=== PATIENT | female | born 1935 | race Caucasian/White ===

== ENCOUNTER → 2017-12-21 08:53 | Outpatient (CLI) | payer MEDICARE, SELFPAY ==
[2017-12-21 10:32] LABS: AST(SGOT) 15 U/L (15-37); Alanine Aminotransfer ALT/SGPT 23 U/L (13-56); Albumin, Serum 2.9 g/dL (3.2-5.0); Alkaline Phosphatase 114 U/L (45-117); Anion Gap 7 (5-15); BUN 21 mg/dL (7-18); BUN/Creat Ratio 16.7 RATIO (10-20); Bilirubin, Direct 0.11 mg/dL (0.00-0.30); Calcium,Total 8.6 mg/dL (8.5-10.1); Chloride 104 mmol/L (98-107); Cholesterol 125 mg/dL (200); Creatinine, Serum 1.26 mg/dL (0.55-1.02); EST Glomerular Filtration Rate 43 mL/min (>60); Est Glom Filt Rate - Afr Amer 52 mL/min (>60); Globulin 4.7 g/dL (2.2-4.2); Glucose 251 mg/dL (74-106); High Density Lipoprotein 66 mg/dL; Microalbumin:Creatinine Ratio 64.3 mg/g CRE (<30 mg/g CRE); Potassium 4.5 mmol/L (3.5-5.1); Protein, Total 7.6 g/dL (6.4-8.2); Sodium Level 138 mmol/L (136-145); Triglycerides 93 mg/dL; Very Low Density Lipoprotein 19 mg/dL (5-40)
== END ==
PROVIDERS: Family Provider Family Medicine; PCP Family Medicine; Visit Provider Family Medicine
DX: E11.9 Type 2 diabetes mellitus without complications (principal)
CPT/HCPCS: 36415; 80048; 80061; 80076; 82043; 82570

== ENCOUNTER → 2018-03-01 08:15 | Outpatient (CLI) | payer MEDICARE, SELFPAY ==
[2018-03-01 08:44] LABS: Absolute Lymphocyte Count 1.75 X10^3/ul (0.83-4.51); Absolute Neutrophil Count 3.2 X10^3/uL (2.0-7.7); Basophil# 0.03 X10^3/uL; Basophil% 0.5 % (0-1); Eosinophil# 0.34 X10^3/uL; Eosinophils% 5.7 % (0-5); Hematocrit 32.3 % (37-47); Lymphocyte # 1.75 X10^3/ul (4.0); Lymphocyte % 29.5 % (19-41); Mean Corpuscular Hgb 25.8 pg (27.0-32.0); Mean Corpuscular Volume 83.5 fL (81-99); Mean Platelet Vol. 10.7 fl (6.2-12.0); Monocyte# 0.65 X10^3/uL; Monocyte% 10.9 % (0-10); Neutrophil # 3.16 X10^3/uL (2.7-7.7); Neutrophil % 53.2 % (47-70); Platelet Count 224 K/mm3 (150-450); RBC Distribution Width CV 14.5 % (11.6-14.6); RBC Distribution Width SD 43.6 fl (35.1-43.9); Red Blood Count 3.87 M/mm3 (4.2-5.4); White Blood Count 5.9 K/mm3 (4.4-11.0)
[2018-03-01 08:45] LABS: POSITIVE COUNT NO; POSITIVE DIFFERENTIAL NO; POSITIVE MORPHOLOGY NO
== END ==
PROVIDERS: Physician Assistant Medical; Family Provider Family Medicine; PCP Family Medicine; Referring Provider Internal Medicine Cardiovascular Disease; Visit Provider Internal Medicine Cardiovascular Disease
DX: I24.8 Other forms of acute ischemic heart disease (principal)
CPT/HCPCS: 36415; 85025

== ENCOUNTER → 2018-06-21 08:45 | Outpatient (CLI) | payer MEDICARE, SELFPAY ==
[2018-02-21 09:04] VITALS: BMI 29.0
[2018-06-21 10:57] LABS: ALB/GLOB Ratio 0.8 RATIO (0.9-2.4); AST(SGOT) 25 U/L (15-37); Alanine Aminotransfer ALT/SGPT 35 U/L (13-56); Albumin, Serum 3.2 g/dL (3.2-5.0); Alkaline Phosphatase 111 U/L (45-117); Anion Gap 10 (5-15); BUN 37 mg/dL (7-18); Calcium,Total 8.7 mg/dL (8.5-10.1); Chloride 105 mmol/L (98-107); Cholesterol 133 mg/dL (200); Creatinine, Serum 1.32 mg/dL (0.55-1.02); EST Glomerular Filtration Rate 41 mL/min (>60); Est Glom Filt Rate - Afr Amer 49 mL/min (>60); Globulin 4.1 g/dL (2.2-4.2); Glucose 101 mg/dL (74-106); High Density Lipoprotein 67 mg/dL; Potassium 4.7 mmol/L (3.5-5.1); Protein, Total 7.3 g/dL (6.4-8.2); Sodium Level 141 mmol/L (136-145); Triglycerides 103 mg/dL; Very Low Density Lipoprotein 21 mg/dL (5-40)
== END ==
PROVIDERS: Family Provider Family Medicine; PCP Family Medicine; Visit Provider Family Medicine
DX: E11.41 Type 2 diabetes mellitus with diabetic mononeuropathy (principal)
CPT/HCPCS: 36415; 80053; 80061

== ENCOUNTER → 2018-06-26 14:22 | Outpatient (CLI) | payer MEDICARE, SELFPAY ==
[2018-02-21 09:04] VITALS: BMI 29.0
--- NOTE | 2018-06-26 14:26 | RAD_ITS ---
STUDY: X-RAY - RIGHT SHOULDER REASON FOR EXAM: Female, 82 years old. Pain following recent fall. TECHNIQUE: 2 view(s) of the shoulder. COMPARISON: None. FINDINGS: Normal glenohumeral articulation. Normal acromioclavicular joint. Normal acromion. Normal humeral head and visualized proximal humerus. There is periarticular soft tissue calcification consistent with a calcific tendinitis. Normal visualized pulmonary apex. RAD/Shoulder min 2 Views IMPRESSION: Calcific tendinitis. Electronically Signed: Isaiah Field, at 15:02 EST , Service support ,
--- NOTE | 2018-06-26 14:26 | RAD_ITS ---
STUDY: X-RAY - RIGHT CLAVICLE REASON FOR EXAM: Female, 82 years old. Pain following a recent fall. TECHNIQUE: 2 view(s) of the clavicle. COMPARISON: None. FINDINGS: Normal clavicle. Normal acromioclavicular articulation. Normal visualized sternoclavicular articulation. Calcific tendinitis. Normal visualized pulmonary apex. RAD/Clavicle IMPRESSION: Calcific tendinitis. Electronically Signed: Isaiah Field, at 15:01 EST , Service support ,
== END ==
PROVIDERS: Family Provider Family Medicine; PCP Family Medicine; Referring Provider Family Medicine; Visit Provider Family Medicine
DX: M75.31 Calcific tendinitis of right shoulder (principal)
CPT/HCPCS: 73000; 73030

== ENCOUNTER → 2018-09-21 09:20 | Outpatient (CLI) | payer MEDICARE, SELFPAY ==
[2018-08-16 14:58] VITALS: BMI 27.3
[2018-09-21 13:19] LABS: ALB/GLOB Ratio 0.8 RATIO (0.9-2.4); AST(SGOT) 16 U/L (15-37); Alanine Aminotransfer ALT/SGPT 21 U/L (13-56); Albumin, Serum 3.1 g/dL (3.2-5.0); Alkaline Phosphatase 106 U/L (45-117); Anion Gap 8 (5-15); BUN 26 mg/dL (7-18); BUN/Creat Ratio 22.2 RATIO (10-20); Calcium,Total 8.9 mg/dL (8.5-10.1); Chloride 106 mmol/L (98-107); Creatinine, Serum 1.17 mg/dL (0.55-1.02); EST Glomerular Filtration Rate 47 mL/min (>60); Est Glom Filt Rate - Afr Amer 57 mL/min (>60); Glucose 156 mg/dL (74-106); Potassium 4.4 mmol/L (3.5-5.1); Protein, Total 7.1 g/dL (6.4-8.2); Sodium Level 141 mmol/L (136-145)
== END ==
PROVIDERS: Family Provider Family Medicine; PCP Family Medicine; Referring Provider Family Medicine; Visit Provider Family Medicine
DX: E11.49 Type 2 diabetes mellitus with other diabetic neurological complication (principal); E11.65 Type 2 diabetes mellitus with hyperglycemia
CPT/HCPCS: 36415; 80053

== ENCOUNTER → 2019-03-21 11:16 | Outpatient (CLI) | payer MEDICARE, SELFPAY ==
[2019-01-07 14:45] VITALS: BMI 26.6
[2019-03-21 13:03] LABS: ALB/GLOB Ratio 0.7 RATIO (0.9-2.4); AST(SGOT) 23 U/L (15-37); Alanine Aminotransfer ALT/SGPT 29 U/L (13-56); Albumin, Serum 3.1 g/dL (3.2-5.0); Alkaline Phosphatase 113 U/L (45-117); Anion Gap 8 (5-15); BUN 23 mg/dL (7-18); BUN/Creat Ratio 17.8 RATIO (10-20); Calcium,Total 8.9 mg/dL (8.5-10.1); Chloride 105 mmol/L (98-107); Creatinine, Serum 1.29 mg/dL (0.55-1.02); EST Glomerular Filtration Rate 42 mL/min (>60); Est Glom Filt Rate - Afr Amer 51 mL/min (>60); Globulin 4.7 g/dL (2.2-4.2); Glucose 221 mg/dL (74-106); Potassium 4.5 mmol/L (3.5-5.1); Protein, Total 7.8 g/dL (6.4-8.2); Sodium Level 139 mmol/L (136-145)
== END ==
PROVIDERS: Family Provider Family Medicine; PCP Family Medicine; Referring Provider Family Medicine; Visit Provider Family Medicine
DX: E11.49 Type 2 diabetes mellitus with other diabetic neurological complication (principal)
CPT/HCPCS: 36415; 80053

== ENCOUNTER 2019-08-20 16:19 | Emergency (ER) | payer MEDICARE, SELFPAY ==
[2019-01-07 14:45] VITALS: BMI 26.6
[2019-08-20] VITALS (14 sets, daily range): BP systolic 132–240; BP diastolic 71–140; PULSE 70–84; RESP 15–23; TEMP 36.2–36.9; O2SAT 93–100; BMI 29.2
--- NOTE | 2019-08-20 16:26 | CT_ITS ---
We are attempting to reach an attending provider to discuss findings. An addendum with communication details will be sent when the communication is complete. STUDY: CT BRAIN WITHOUT CONTRAST REASON FOR EXAM: Female, 83 years old. PT WAS PLAYING CASSIDY 1.5 HRS AGO- FORGOT HOW TO PLAY, GOT WORSE. HTN 193/125 RADIATION DOSAGE (If Supplied By Facility): CTDIvol = ( 44.99 ) mGy, DLP = ( 779.24 ) mGycm TECHNIQUE: Transaxial CT imaging of the brain was performed without administration of intravenous contrast material. Individualized dose optimization techniques were used for this CT. COMPARISON: March 23, 2017. FINDINGS: Normal soft tissue structures. Normal calvarium. Diffuse calcification of cavernous carotids and vertebral arteries Moderate atrophy and periventricular white matter ischemic changes.. Normal basal ganglia and thalami. Normal brainstem. Normal cerebellum. There is no intracranial hemorrhage. There are no findings of an acute ischemic infarction. Postsurgical changes of the orbits Normal visualized paranasal sinuses. No significant change since prior exam CT/Brain/Head without Contrast IMPRESSION: Moderate atrophy and white matter ischemic change. No evidence for acute bleed. If concern for acute infarct MRI recommended. Electronically Signed: Thomas Cunningham MD at 16:45 EDT , Service support ,
--- NOTE | 2019-08-20 16:26 | EKG12_ITS ---
Test Reason : R/O STROKE Blood Pressure : / mmHG Vent. Rate : 078 BPM Atrial Rate : 078 BPM P-R Int : 182 ms QRS Dur : 090 ms QT Int : 410 ms P-R-T Axes : 065 057 007 degrees QTc Int : 467 ms Normal sinus rhythm Nonspecific ST abnormality Abnormal ECG Confirmed by JESSICA LAMA, DANDY ([id number]), publishing editor FORREST SARMIENTO ([id number]) on 08/26/2019 10:49:39 AM Referred By: Keily Camarillo Confirmed By:SAROJ CAMARILLO MD
--- NOTE | 2019-08-20 16:27 | CM.ED ---
Social Work Responding to stoke alert. Provided support for patient spouse, Hernesto Jordan. Julian stating to be primary wound care center consultant for patient. Patient and Julian also have support from granddaughter, Yumiko that is currently outside ED department due to COVID-19 precautions. Julian wanting Yumiko to be updated as possible. Updated Yumiko on stroke alert for patient, Yumiko tearful but able to collect self. Julian also tearful, but also able to collect self. Will continue to follow for further support and active listening as needed. Adi Clements MSW, ELSA
[2019-08-20 16:47] LABS: Absolute Lymphocyte Count 2.15 X10^3/uL (0.83-4.51); Absolute Neutrophil Count 4.4 X10^3/uL (2.0-7.7); Basophil# 0.04 X10^3/uL; Basophil% 0.5 % (0-1); Eosinophil# 0.14 X10^3/uL; Eosinophils% 1.9 % (0-5); Hematocrit 35.8 % (37-47); Lymphocyte # 2.15 X10^3/ul (4.0); Lymphocyte % 28.4 % (19-41); Mean Corp Hgb Conc 30.7 g/dL (32-36); Mean Corpuscular Hgb 25.2 pg (27.0-32.0); Mean Corpuscular Volume 81.9 fL (81-99); Mean Platelet Vol. 10.7 fl (6.2-12.0); Monocyte% 10.6 % (0-10); NRBC Flagged by Analyzer 0 % (0-5); Neutrophil # 4.41 X10^3/uL (2.7-7.7); Neutrophil % 58.3 % (47-70); Platelet Count 264 K/mm3 (150-450); RBC Distribution Width CV 14.6 % (11.6-14.6); RBC Distribution Width SD 43.8 fl (35.1-43.9); Red Blood Count 4.37 M/mm3 (4.2-5.4); White Blood Count 7.6 K/mm3 (4.4-11.0)
--- NOTE | 2019-08-20 16:49 | CT_ITS ---
STUDY: CTA HEAD AND NECK WITH CONTRAST REASON FOR EXAM: Female, 83 years old. CVA, FORGOT SUDDENLY HOW TO PLAY CASSIDY RADIATION DOSAGE (If Supplied By Facility): CTDIvol = ( 20.07 ) mGy, DLP = ( 669.12 ) mGycm TECHNIQUE: CT angiography was performed with a multi-detector CT scanner. Data acquisition was obtained from the skull base through the vertex following intravenous administration of 100ML ISOVUE 370. MIP images were reconstructed from the axial data set. Post-processing of the angiographic images was performed, with multiplanar reformation and 3D reconstruction. Individualized dose optimization techniques were used for this CT. COMPARISON: No relevant priors. FINDINGS: Normal bilateral petrous carotid arteries. Diffuse calcific plaquing of the right cavernous carotid artery with a normal supraclinoid bifurcation. Diffuse calcific plaquing of the left cavernous carotid artery with a normal supraclinoid bifurcation. Normal right A1 segments of the anterior cerebral artery. Severely narrowed proximal left A1 segments of the anterior cerebral artery. Normal intact anterior communicating artery (ACOM). Normal bilateral A2 segments of the anterior cerebral arteries. Normal right M1 and M2 segments of the middle cerebral arteries, with a normal M1 bifurcation. Normal left M1 and M2 segments of the middle cerebral arteries, with a normal M1 bifurcation. Normal right posterior communicating artery (PCOM). Left posterior communicating artery not visualized consistent with normal variant. Normal bilateral vertebral arteries. Normal basilar artery with a normal basilar bifurcation. The visualized bilateral superior cerebellar (SCA) arteries are normal. Normal right posterior cerebral artery. Severely narrowed P2 segment of the left posterior cerebral There is no demonstrated aneurysm of the [place]. There is no demonstrated abnormality of the visualized brain. AORTIC ARCH: Normal visualized aortic arch. Normal origins of the brachiocephalic, left common carotid, and left subclavian arteries. RIGHT CAROTID ARTERIES: Normal right common carotid artery (CCA). High-grade stenosis of the right common carotid bulb. High-grade stenosis of the origin of the right internal carotid (ICA) artery without a hemodynamically significant stenosis. Normal visualized cervical portion of the right internal carotid artery. Normal origin of the right external carotid artery (ECA). LEFT CAROTID ARTERIES: Normal left common carotid artery (CCA). High-grade stenosis of the left common carotid bulb. High-grade stenosis of the origin of the left internal carotid (ICA) artery. Normal visualized cervical portion of the left internal carotid artery. Normal origin of the left external carotid artery (ECA). VERTEBRAL ARTERIES: Normal bilateral vertebral arteries. CT/CTA Head AND Neck W/ Contrast IMPRESSION: Advanced atherosclerotic disease with high-grade stenosis of the carotid bulb and origin of internal carotids bilaterally. There is also severe narrowing of the proximal A1 segment of the left anterior cerebral artery and severe narrowing of the P2 segment of left posterior cerebral artery Electronically Signed: Thomas Cunningham MD at 17:45 EDT , Service support ,
[2019-08-20 17:11] LABS: Anion Gap 5 (5-15); BUN 21 mg/dL (7-18); BUN/Creat Ratio 16.5 RATIO (10-20); Calcium,Total 9.4 mg/dL (8.5-10.1); Chloride 101 mmol/L (98-107); Creatinine, Serum 1.27 mg/dL (0.55-1.02); EST Glomerular Filtration Rate 43 mL/min (>60); Est Glom Filt Rate - Afr Amer 51 mL/min (>60); Estimated Creatinine Clearance 26.08 ml/min; Glucose 196 mg/dL (74-106); Potassium 4.7 mmol/L (3.5-5.1); Sodium Level 134 mmol/L (136-145)
[2019-08-20 17:26] LABS: Partial Thromboplast Time 28.8 Seconds (24.1-36.2); Prothrombin Time (Protime)PT. 12.7 SECONDS (11.7-14.9)
--- NOTE | 2019-08-20 17:49 | RAD_ITS ---
STUDY: X-RAY CHEST REASON FOR EXAM: Female, 83 years old. stroke protocol TECHNIQUE: AP portable COMPARISON: December 21, 2015 FINDINGS: Nonspecific elevation of right hemidiaphragm. Mild bilateral perihilar interstitial thickening There is no demonstrated pleural abnormality. Normal size heart. Normal mediastinum and quirino. Normal visualized pulmonary arteries. Diffusely calcified aortic arch and descending thoracic aorta. Dorsal spine and shoulders demonstrate degenerative change. Normal visualized ribs, clavicles, and shoulders. Right paratracheal convex soft tissue density without displacement of the trachea most likely vascular There is no demonstrated abnormality of the visualized soft tissue structures of the upper abdomen. No significant changes since prior exam RAD/Chest 1 View IMPRESSION: No acute cardiopulmonary pathology. Electronically Signed: Thomas Cunningham MD at 18:00 EDT , Service support ,
--- NOTE | 2019-08-20 17:52 | ED.RN ---
pt able to answer questions. smiling and told spouse i love you too pt getting name rt but unable to state last name or age or birthday. denies any pain at this time. kelly draining clear yellow. nih score still 9 though some fragments of speech appropriate now. unable to extinguish which side when tested extinction and that uses magnifying glass to read and does not see well at all. unable to see pic on nih scoring sheet. at bedside.
--- NOTE | 2019-08-20 17:59 | NURSING ---
CALLED [facility] FOR DR ABBOTT TO TALK TO NEUROLOGIST
--- NOTE | 2019-08-20 18:16 | ED.VISSUMM ---
- ER Visit Summary Date of Service: 08/20/19 Chief Complaint: Difficulty speaking confusion History of Present Illness: The patient is a 83 F who presents with the above symptoms. Her and her were playing a card game when she became acutely confused. She did not know what game they were playing. She forgot how to play. She did know how to eat a sandwich that he had given her. He feels that her speech is abnormal. They called EMS. Glucose was 211 in route. She is on no blood thinning medications. No history of stroke in the past. Physical Examination: Vital signs reviewed. HEENT exam unremarkable. Heart is regular rate and rhythm without murmurs. Lungs are clear to auscultation. Abdomen is soft and nontender. Extremities reveal no edema. Skin exam normal. Neurologic exam shows an NIH stroke scale of 6. She has expressive aphasia with some mild right-sided weakness. Test Results: CAT scan of the head reveals chronic changes with no bleed. EKG unremarkable. Labs show a hemoglobin of 11, sodium 134, creatinine 1.27. INR 1. CTA of the head and neck reveals a high-grade stenosis of the carotids bilaterally Emergency Department Course and Treatment: The patient was made a stroke team upon arrival. The neurologist recommended TPA and discussed with the . He consented to the TPA. After the CTA results were relayed to the [facility] neurologist, he recommended transfer. Treatment Plan: [] Disposition: Transfer Impression: Ischemic stroke This note was generated with [employer] dictation software. It may contain incorrect words, spelling, and punctuation that were not noted in review of the chart prior to signing ED Disposition - Plan for ED Patient: Referrals: Shun Michelle MD [Primary Care Provider] -
--- NOTE | 2019-08-20 18:17 | NURSING ---
CALLED [facility] FOR TRANSPORT
--- NOTE | 2019-08-20 18:40 | ED.RN ---
consent to transfer signed per pt's and labetolol given for bp >180
--- NOTE | 2019-08-20 21:35 | ED.RN ---
CHART OPENED TO ANSWER A QUESTION FOR [facility]
== END 2019-08-20 19:20 | disposition short-term general hospital (02) ==
PROVIDERS: Emergency Provider Emergency Medicine; PCP Family Medicine
DX: I63.9 Cerebral infarction, unspecified (principal); I10 Essential (primary) hypertension; E78.00 Pure hypercholesterolemia, unspecified; E11.9 Type 2 diabetes mellitus without complications
CPT/HCPCS: 51702; 70450; 70496; 70498; 71045; 80048; 84484; 85025; 85610; 85730; 93005; 96365; 96372; 96375; 99285; J2997; Q9967; A4216

== ENCOUNTER 2019-08-29 18:39 | Inpatient (IN) | payer MEDICARE, SELFPAY ==
[2019-08-20 16:25] VITALS: BMI 29.2
[2019-08-29 18:45] VITALS: BP 146/71; PULSE 73; RESP 20; TEMP 36.9; O2SAT 93; BMI 26.5
--- NOTE | 2019-08-29 20:37 | HP.PCM_ITS ---
Problem List (1) Debility Status: Acute (2) Acute confusion Status: Acute (3) Expressive aphasia Status: Acute (4) Stroke aborted by administration of thrombolytic agent Status: Acute (5) Acute kidney injury Status: Acute (6) Anemia Status: Acute (7) Diabetes mellitus Status: Chronic (8) Carotid stenosis Status: Chronic (9) Hyperlipidemia Status: Chronic Qualifiers: (10) Hypertension Status: Chronic History of Present Illness Date of Admission: 08/29/19 Chief Complaint: Here for rehabilitation, strengthening, prior to discharge home with . The patient is a 83 year old Female with below past medical history presented to [facility] Emergency Department 08/20/2019 with difficulty speaking, confusion. 08/20/2019 EKG normal sinus rhythm, nonspecific ST abnormality. 08/20/2019 CT brain moderate atrophy, white matter ischemic changes, NEGATIVE acute bleed. 08/20/2019 CTA head/neck showed bilateral severe carotid artery stenosis. Severe narrowing proximal A1 left anterior cerebral artery. Severe narrowing P2 left posterior cerebral artery. 08/20/2019 Chest X-ray negative. Playing cards with , acutely confused. Stroke Team activated. tPA given. Transfer to [facility]. 08/20/2019 Admit to [facility]. Post tPA protocol. SCD's DVT prophylaxis. 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 Consult neurosurgery bilateral carotid artery stenosis. 08/21/2019 Fever 100.7, check COVID. 08/22/2019 COVID negative. Increase IV fluids for Creatinine 2.3. Transfuse if hemoglobin less than 7, transfused 1 unit PRBC. MRI brain negative stroke, stroke aborted by tPA. 08/23/2019 Increase Coreg. 08/24/2019 CPAP, diuresis for desaturation. 08/25/2019 Asymptomatic run V Tach. Lasix 20MG IV given for pulmonary edema. 08/26/2019 Chest X-ray improved. Asymptomatic internal carotid artery disease. 08/29/2019 Admit to TCU with debility, here for rehabilitation, strengthening, prior to discharge home with . Past Medical History Past Medical History (Chronic Problems): Chronic Problems (Last Reviewed 01/04/19 @ 13:58 by Kellie Fuentes) Diabetes mellitus (Chronic) Carotid stenosis (Chronic) Demand ischemia of myocardium (Chronic ~12/2015) Hyperlipidemia (Chronic ~12/2015) Non-ST elevation NM (NSTEMI) (Chronic) Hypertension (Chronic) Type II diabetes mellitus (Chronic) Medical History: Medical History (Last Reviewed 01/04/19 @ 13:58 by Kellie Fuentes) Demand ischemia of myocardium (Chronic) Onset Date: ~12/2015 I24.8 Hyperlipidemia (Chronic) Onset Date: ~12/2015 E78.5 Non-ST elevation NM (NSTEMI) (Chronic) I21.4 Hypertension (Chronic) I10 Type II diabetes mellitus (Chronic) E11.9 Acute kidney injury Onset Date: ~11/2015 N17.9 Allergies No Known Allergies Allergy (Verified 01/07/19 14:50) Home Medications: Ambulatory Orders Medication Instructions Recorded Citalopram [Celexa] 40 mg PO DAILY 12/21/15 Amlodipine [Norvasc] 10 mg PO DAILY 08/20/19 Atorvastatin Calcium [Lipitor] 40 mg PO QHS 08/20/19 Citalopram [Celexa] 20 mg PO DAILY 08/20/19 Donepezil HCl [Aricept] 10 mg PO QHS 08/20/19 Glimepiride [Amaryl] 4 mg PO DAILY 08/20/19 Pantoprazole Sodium [Protonix] 40 mg PO DAILY 08/20/19 ALPRAZolam [Xanax] 0.5 mg PO QHS PRN PRN 08/29/19 Aspirin [Aspirin EC] 81 mg PO DAILY 08/29/19 Carvedilol [Coreg] 12.5 mg PO BID 08/29/19 Insulin Glargine [Lantus (BKC)] 10 units SUBCUT DINNER 08/29/19 Insulin Lispro [Humalog KwikPen] 1 - 5 unit SQ 4X/DAY 08/29/19 Surgical History: noncontributory Psychiatric History: 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 psych hx 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 MANAGER 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: 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 RIG MANAGER history Lives: Spouse/ Significant Other Smoking Status: Never smoker Tobacco Use: Non-smoker Alcohol: None Drugs: None - *Family History Maternal Family History: Family History (Last Reviewed 01/04/19 @ 13:58 by Kellie Fuentes) Mother Diabetes History Items: Diabetes Paternal Family History: Family History (Last Reviewed 01/04/19 @ 13:58 by Kellie Fuentes) Mother Diabetes History Items: 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 history Review of Systems Constitutional: Denies: Chills, Fever, Weight Change HEENT: Denies: Head Aches, Sinus Congestion, Sinus Drainage Cardiovascular: Denies: Chest Pain, Palpitations Respiratory: Denies: Cough, Shortness of breath at rest, Sputum production Gastrointestinal: Denies: Abdominal Pain, Nausea, Vomiting Genitourinary: Denies: Dysuria Musculoskeletal: Reports: - - Hip pain.. Denies: Joint Pain, Joint Tenderness Skin: Denies: Rash, Wounds Neurological: Denies: Numbness, Tingling, Focal weakness Psychiatric: Denies: Anxiety, Depression, Homicidal Ideations, Suicidal Ideations Hematologic/ Lymphatic: Denies: Easy Bruising, Easy Bleeding VTE Information - Inpt Only VTE Present on Admission: No VTE Mechan Device Prophylaxis: Knee High FIGUEROA Hose VTE Pharm Prophylaxis ordered?: No Reason prophylaxis not ordered:: Medical Contraindication Patient Problems: Active and Suspected Problems (Last Reviewed 01/04/19 @ 13:58 by Kellie Fuentes) Debility (Acute) Acute confusion (Acute) Expressive aphasia (Acute) Stroke aborted by administration of thrombolytic agent (Acute) Acute kidney injury (Acute) Anemia (Acute) - Physical Exam Vitals/I&O's: Body Mass Index (BMI) 29.2 Finger Stick Blood Glucose 211 General: Alert, Oriented x3, Cooperative HEENT: Atraumatic, PERRLA, EOMI, Normocephalic Neck: Supple, No JVD, Negative Carotid Bruits Lungs: Clear to auscultation, Normal air movement Cardiovascular: Regular rate, No murmurs Abdomen: Bowel Sounds Present, Soft, Non Tender Extremities: No edema, Capillary Refill Less than 3 Seconds Skin: No rashes, No breakdown Musculoskeletal: No Tenderness to Palpation of Joints or Extremities Neurological: Cranial nerves II-XII grossly intact Psych/Mental Status: Normal Affect, Appropriate Current Medications Alprazolam (Xanax) 0.5 mg PO QHS PRN PRN PRN Reason: ANXIETY Amlodipine Besylate (Norvasc) 10 mg PO DAILY [facility] Atorvastatin Calcium (Lipitor) 40 mg PO QHS [facility] Carvedilol (Coreg) 12.5 mg PO BID [facility] Citalopram Hydrobromide (Celexa) 20 mg PO DAILY [facility] Donepezil HCl (Aricept) 10 mg PO QHS [facility] Glimepir[facility]Amaryl) [facility] Insulin Glargine (Lantus (Bkc)) 10 units SC DINNER [place] Insulin Human Lispro (Humalog Kwikpen (Bk)) 0 unit SC ACHS [facility]; Protocol Pantoprazole Sodium (Protonix) 40 mg PO DAILY [facility] Tuberculin PPD (Tubersol, Aplisol, Ppd) 5 tu ID X1 ONE Stop: 08/30/19 10:01 Tuberculin PPD (Tubersol, Aplisol, Ppd) 5 tu ID X1 ONE Stop: 09/06/19 10:01 Assessment/Plan All Active Problems (Last Reviewed 01/04/19 @ 13:58 by Kellie Fuentes) Debility (Acute) Acute confusion (Acute) Expressive aphasia (Acute) Stroke aborted by administration of thrombolytic agent (Acute) Acute kidney injury (Acute) Anemia (Acute) Acute renal failure (ARF) (Resolved) Hyperkalemia (Resolved) Hypoglycemia (Resolved) Metabolic acidosis (Resolved) 83 year old female with below past medical history hospitalized for aborted stroke after tPA administration, complicated by acute kidney injury, anemia, ventricular tachycardia, pulmonary edema, admitted to TCU with debility, here for rehabilitation, strengthening, prior to discharge home with . * Debility - PT/OT. * Confusion - ST. * Pain - Tylenol 1000MG Q8H scheduled. * Bowel - Miralax 17GM daily, Senna/colace 1 tablet BID, Dulcolax 10MG daily PRN. * Adult immunization - Administer Prevnar 13, Pneumovax 23, Fluzone as appropriate. * DVT prophylaxis - Hold, recent tPA administration. * Anxiety - Xanax 0.5MG QHS PRN. * Hypertension - Coreg 12.5MG BID, Amlodipine 10MG daily. * Aborted stroke - Aspirin 81MG daily. * Hyperlipidemia - Atorvastatin 40MG QHS. * Depression - Citalopram 20MG daily. * Vascular dementia - Donepezil 10MG QHS. * Diabetes Mellitus II - Glimepiride 4MG, Lantus 10 units dinner. * GERD - Pantoprazole 40MG daily. * Iron deficiency anemia - Ferrex 150MG daily.
[2019-08-29] MEDS: ALPRAZolam 0.5 MG Tablet PO (21:18)
[2019-08-29] MEDS: Donepezil HCl 10 MG Tablet PO (21:18)
[2019-08-29] MEDS: Atorvastatin Calcium 40 MG Tablet PO (21:18)
[2019-08-29 21:35] LABS: Bedside Glucose 80 mg/dL (70-110)
[2019-08-30] MEDS: Senna/Docusate Sodium 1 Tablet PO ×2 (05:58→17:06)
[2019-08-30] MEDS: Carvedilol 12.5 MG Tablet PO ×2 (05:58→17:07)
[2019-08-30] MEDS: Citalopram 20 MG Tablet PO (05:58)
[2019-08-30] MEDS: Pantoprazole Sodium 40 MG Tablet PO (05:58)
[2019-08-30] MEDS: amLODIPine 10 MG Tablet PO (05:58)
[2019-08-30] MEDS: Polyethylene Glycol 3350 17 GM PACKET PO (05:59)
[2019-08-30] MEDS: Menthol/Lanolin/Calamine/Znox 113 GM Tube 1 APPLIC TOPICAL ×2 (06:00→17:11)
[2019-08-30 06:02] LABS: Absolute Neutrophil Count 3.4 X10^3/uL (2.0-7.7); Basophil# 0.03 X10^3/uL; Basophil% 0.4 % (0-1); Eosinophil# 0.56 X10^3/uL; Eosinophils% 8.4 % (0-5); Hematocrit 27.2 % (37-47); Hemoglobin 8.3 g/dL (12.0-15.0); Lymphocyte % 25.5 % (19-41); Mean Corp Hgb Conc 30.5 g/dL (32-36); Mean Corpuscular Hgb 27.3 pg (27.0-32.0); Mean Corpuscular Volume 89.5 fL (81-99); Mean Platelet Vol. 10.5 fl (6.2-12.0); Monocyte# 0.98 X10^3/uL; Monocyte% 14.7 % (0-10); NRBC Flagged by Analyzer 0 % (0-5); Neutrophil # 3.37 X10^3/uL (2.7-7.7); Neutrophil % 50.6 % (47-70); Platelet Count 303 K/mm3 (150-450); RBC Distribution Width CV 17.2 % (11.6-14.6); RBC Distribution Width SD 53.5 fl (35.1-43.9); Red Blood Count 3.04 M/mm3 (4.2-5.4); White Blood Count 6.7 K/mm3 (4.4-11.0)
[2019-08-30] MEDS: Glucerna Shake 120 ML LIQUID PO ×4 (06:16→22:25)
[2019-08-30 07:02] LABS: Anion Gap 7 (5-15); BUN 37 mg/dL (7-18); BUN/Creat Ratio 26.4 RATIO (10-20); Calcium,Total 8.8 mg/dL (8.5-10.1); Chloride 108 mmol/L (98-107); EST Glomerular Filtration Rate 38 mL/min (>60); Est Glom Filt Rate - Afr Amer 46 mL/min (>60); Estimated Creatinine Clearance 23.66 ml/min; Glucose 96 mg/dL (74-106); Potassium 4.4 mmol/L (3.5-5.1); Sodium Level 142 mmol/L (136-145)
[2019-08-30] MEDS: Glimepiride 4 MG Tablet PO (08:34)
[2019-08-30] MEDS: Aspirin E.C. 81 MG Tablet PO (08:34)
[2019-08-30 10:00] VITALS: PULSE 62; RESP 16; O2SAT 96
[2019-08-30] MEDS: ALPRAZolam 0.5 MG Tablet PO (10:40)
[2019-08-30] MEDS: Tuberculin,Purif.prot.deriv. 50 TU/ML Vial 5 ML ID (10:43)
[2019-08-30 11:21] LABS: Bedside Glucose 222 mg/dL (70-110)
--- NOTE | 2019-08-30 13:49 | CASEMGMT ---
Social Work Discussed code status with pt. Pt confirmed full code. MOSLT form completed and put in chart. Pascale Lee, MERCHANDISING EXECUTION ASSOCIATE BOX FEEDER
[2019-08-30 14:42] VITALS: BP 148/64; PULSE 75; RESP 18; TEMP 36.6; O2SAT 97
[2019-08-30 16:25] LABS: Bedside Glucose 194 mg/dL (70-110)
[2019-08-30] MEDS: Acetaminophen 500 MG Tablet 1000 MG PO ×2 (17:07→22:25)
[2019-08-30 21:36] LABS: Bedside Glucose 202 mg/dL (70-110)
[2019-08-30] MEDS: Atorvastatin Calcium 40 MG Tablet PO (22:26)
[2019-08-30] MEDS: Doxepin Hydrochloride 10 MG Capsule PO (22:27)
[2019-08-30] MEDS: Donepezil HCl 10 MG Tablet PO (22:27)
[2019-08-30] MEDS: Mirtazapine 15 MG Tablet 7.5 MG PO (22:30)
[2019-08-31] MEDS: Polyethylene Glycol 3350 17 GM PACKET PO (04:41)
[2019-08-31] MEDS: Acetaminophen 500 MG Tablet 1000 MG PO ×3 (04:42→21:16)
[2019-08-31] MEDS: amLODIPine 10 MG Tablet PO (04:42)
[2019-08-31] MEDS: Senna/Docusate Sodium 1 Tablet PO ×2 (04:42→18:12)
[2019-08-31] MEDS: Citalopram 20 MG Tablet PO (04:42)
[2019-08-31] MEDS: Glucerna Shake 120 ML LIQUID PO ×4 (04:42→21:15)
[2019-08-31] MEDS: Pantoprazole Sodium 40 MG Tablet PO (04:42)
[2019-08-31] MEDS: Carvedilol 12.5 MG Tablet PO ×2 (04:42→18:12)
[2019-08-31] MEDS: Menthol/Lanolin/Calamine/Znox 113 GM Tube 1 APPLIC TOPICAL ×2 (04:46→18:13)
[2019-08-31 06:25] LABS: Bedside Glucose 212 mg/dL (70-110)
[2019-08-31] MEDS: Iron Polysaccharide Complex 150 MG CAPSULE PO (08:59)
[2019-08-31] MEDS: Glimepiride 4 MG Tablet PO (08:59)
[2019-08-31] MEDS: Aspirin E.C. 81 MG Tablet PO (08:59)
[2019-08-31 11:26] LABS: Bedside Glucose 193 mg/dL (70-110)
[2019-08-31 16:00] VITALS: BP 155/50; PULSE 63; RESP 14; TEMP 36.2; O2SAT 96
[2019-08-31 16:32] LABS: Bedside Glucose 169 mg/dL (70-110)
[2019-08-31 21:16] LABS: Bedside Glucose 213 mg/dL (70-110)
[2019-08-31] MEDS: Atorvastatin Calcium 40 MG Tablet PO (21:17)
[2019-08-31] MEDS: Donepezil HCl 10 MG Tablet PO (21:17)
[2019-08-31] MEDS: Doxepin Hydrochloride 10 MG Capsule PO (21:17)
[2019-08-31] MEDS: Mirtazapine 15 MG Tablet 7.5 MG PO (21:20)
[2019-08-31] MEDS: ALPRAZolam 0.5 MG Tablet PO (23:50)
[2019-09-01] MEDS: Glucerna Shake 120 ML LIQUID PO ×4 (04:25→21:39)
[2019-09-01] MEDS: Polyethylene Glycol 3350 17 GM PACKET PO (04:25)
[2019-09-01] MEDS: Carvedilol 12.5 MG Tablet PO ×2 (04:26→18:18)
[2019-09-01] MEDS: Acetaminophen 500 MG Tablet 1000 MG PO ×3 (04:26→21:39)
[2019-09-01] MEDS: Pantoprazole Sodium 40 MG Tablet PO (04:26)
[2019-09-01] MEDS: amLODIPine 10 MG Tablet PO (04:26)
[2019-09-01] MEDS: Citalopram 20 MG Tablet PO (04:27)
[2019-09-01] MEDS: Senna/Docusate Sodium 1 Tablet PO ×2 (04:27→18:20)
[2019-09-01] MEDS: Menthol/Lanolin/Calamine/Znox 113 GM Tube 1 APPLIC TOPICAL ×2 (04:30→18:19)
[2019-09-01 06:30] LABS: Bedside Glucose 88 mg/dL (70-110)
[2019-09-01] MEDS: Aspirin E.C. 81 MG Tablet PO (08:29)
[2019-09-01] MEDS: Glimepiride 4 MG Tablet PO (08:30)
[2019-09-01] MEDS: Iron Polysaccharide Complex 150 MG CAPSULE PO (08:30)
[2019-09-01 11:15] LABS: Bedside Glucose 130 mg/dL (70-110)
[2019-09-01 15:13] VITALS: BP 157/55; PULSE 61; RESP 16; TEMP 36.6; O2SAT 97
[2019-09-01 16:50] LABS: Bedside Glucose 98 mg/dL (70-110)
--- NOTE | 2019-09-01 17:10 | NURSING ---
Pt requesting nasal spray. Dr. Cedillo updated and N.O. received
[2019-09-01] MEDS: ALPRAZolam 0.5 MG Tablet PO (21:39)
[2019-09-01] MEDS: Atorvastatin Calcium 40 MG Tablet PO (21:40)
[2019-09-01] MEDS: Donepezil HCl 10 MG Tablet PO (21:40)
[2019-09-01] MEDS: Doxepin Hydrochloride 10 MG Capsule PO (21:40)
[2019-09-01 21:41] LABS: Bedside Glucose 148 mg/dL (70-110)
[2019-09-01] MEDS: Mirtazapine 15 MG Tablet 7.5 MG PO (21:42)
[2019-09-02] MEDS: Glucerna Shake 120 ML LIQUID PO ×4 (06:04→21:40)
[2019-09-02] MEDS: Citalopram 20 MG Tablet PO (06:05)
[2019-09-02] MEDS: Acetaminophen 500 MG Tablet 1000 MG PO ×3 (06:05→21:40)
[2019-09-02] MEDS: Pantoprazole Sodium 40 MG Tablet PO (06:06)
[2019-09-02] MEDS: Carvedilol 12.5 MG Tablet PO ×2 (06:06→18:48)
[2019-09-02] MEDS: amLODIPine 10 MG Tablet PO (06:06)
[2019-09-02] MEDS: Menthol/Lanolin/Calamine/Znox 113 GM Tube 1 APPLIC TOPICAL ×2 (06:07→18:47)
[2019-09-02 06:26] LABS: Bedside Glucose 52 mg/dL (70-110)
[2019-09-02 06:50] LABS: Bedside Glucose 74 mg/dL (70-110)
[2019-09-02] MEDS: Glimepiride 4 MG Tablet PO (09:40)
[2019-09-02] MEDS: Iron Polysaccharide Complex 150 MG CAPSULE PO (09:41)
[2019-09-02] MEDS: Aspirin E.C. 81 MG Tablet PO (09:46)
[2019-09-02 11:06] LABS: Bedside Glucose 164 mg/dL (70-110)
[2019-09-02 16:00] VITALS: BP 123/73; PULSE 62; RESP 16; TEMP 36.4; O2SAT 96
[2019-09-02 16:46] LABS: Bedside Glucose 179 mg/dL (70-110)
[2019-09-02] MEDS: Senna/Docusate Sodium 1 Tablet PO (18:48)
[2019-09-02] MEDS: Doxepin Hydrochloride 10 MG Capsule PO (21:40)
[2019-09-02] MEDS: Donepezil HCl 10 MG Tablet PO (21:40)
[2019-09-02] MEDS: Mirtazapine 15 MG Tablet 7.5 MG PO (21:40)
[2019-09-02] MEDS: Atorvastatin Calcium 40 MG Tablet PO (21:40)
[2019-09-02 22:21] LABS: Bedside Glucose 218 mg/dL (70-110)
[2019-09-03] MEDS: Glucerna Shake 120 ML LIQUID PO ×4 (06:01→21:20)
[2019-09-03] MEDS: Citalopram 20 MG Tablet PO (06:02)
[2019-09-03] MEDS: amLODIPine 10 MG Tablet PO (06:02)
[2019-09-03] MEDS: Senna/Docusate Sodium 1 Tablet PO (06:02)
[2019-09-03] MEDS: Acetaminophen 500 MG Tablet 1000 MG PO ×3 (06:02→21:20)
[2019-09-03] MEDS: Pantoprazole Sodium 40 MG Tablet PO (06:02)
[2019-09-03] MEDS: Carvedilol 12.5 MG Tablet PO ×2 (06:02→16:55)
[2019-09-03] MEDS: Menthol/Lanolin/Calamine/Znox 113 GM Tube 1 APPLIC TOPICAL ×2 (06:04→16:57)
[2019-09-03 06:15] LABS: Bedside Glucose 148 mg/dL (70-110)
[2019-09-03] MEDS: Aspirin E.C. 81 MG Tablet PO (08:17)
[2019-09-03] MEDS: Iron Polysaccharide Complex 150 MG CAPSULE PO (08:18)
[2019-09-03] MEDS: Glimepiride 4 MG Tablet PO (08:19)
[2019-09-03 08:23] VITALS: RESP 18
[2019-09-03 11:11] LABS: Bedside Glucose 184 mg/dL (70-110)
[2019-09-03 14:19] VITALS: BP 116/47; PULSE 61; RESP 16; TEMP 36.1; O2SAT 94
--- NOTE | 2019-09-03 14:28 | CASEMGMT ---
Social Work Provided card from community member to pt. Pt appreciated the words of encouragement. Discussed with pt her goals as pt expressed during a therapy sessions she was tired and done. Pt feels therapy is helping a little bit and she wants to be able to walk with her walker to return home with her . Inquired if pt was tired and was done fighting - pt explained no, she wanted to keep fighting so she could go home. Inquired what would be the alternative plan if she couldn't go home - he would like to stay in TCU. Inquired about other SNFs if needed. Pt said she trusted her to make those decisions for her. Will continue to follow as pt's care plan meeting in the following day. BARTOLO Marshall
[2019-09-03 17:06] LABS: Bedside Glucose 190 mg/dL (70-110)
[2019-09-03] MEDS: Mirtazapine 15 MG Tablet 7.5 MG PO (21:20)
[2019-09-03] MEDS: Atorvastatin Calcium 40 MG Tablet PO (21:20)
[2019-09-03] MEDS: Donepezil HCl 10 MG Tablet PO (21:20)
[2019-09-03] MEDS: Doxepin Hydrochloride 10 MG Capsule PO (21:20)
[2019-09-03 21:21] LABS: Bedside Glucose 203 mg/dL (70-110)
[2019-09-04] MEDS: Glucerna Shake 120 ML LIQUID PO ×4 (05:22→21:01)
[2019-09-04] MEDS: Citalopram 20 MG Tablet PO (05:22)
[2019-09-04] MEDS: amLODIPine 10 MG Tablet PO (05:22)
[2019-09-04] MEDS: Pantoprazole Sodium 40 MG Tablet PO (05:22)
[2019-09-04] MEDS: Polyethylene Glycol 3350 17 GM PACKET PO (05:22)
[2019-09-04] MEDS: Carvedilol 12.5 MG Tablet PO ×2 (05:22→17:14)
[2019-09-04] MEDS: Acetaminophen 500 MG Tablet 1000 MG PO ×3 (05:22→21:01)
[2019-09-04] MEDS: Senna/Docusate Sodium 1 Tablet PO (05:22)
[2019-09-04] MEDS: Menthol/Lanolin/Calamine/Znox 113 GM Tube 1 APPLIC TOPICAL ×2 (05:25→17:13)
[2019-09-04 06:16] LABS: Bedside Glucose 162 mg/dL (70-110)
[2019-09-04] MEDS: Iron Polysaccharide Complex 150 MG CAPSULE PO (08:21)
[2019-09-04] MEDS: Glimepiride 4 MG Tablet PO (08:21)
[2019-09-04] MEDS: Aspirin E.C. 81 MG Tablet PO (08:21)
[2019-09-04 10:00] VITALS: PULSE 64; RESP 16
--- NOTE | 2019-09-04 10:58 | NURSING ---
Pt refuses thigh highs, agreed to wear candace wraps.
[2019-09-04 11:00] LABS: Bedside Glucose 252 mg/dL (70-110)
--- NOTE | 2019-09-04 11:29 | CASEMGMT ---
Social Work IDT met with patient and via conference call for care plan meeting. Discussed patient's progress in therapy. Pt is CGA for transfers, ambulating 20 ft with FWW at CGA, not tested bed mobility, SBA standing at sink SBA, max for bathing, min for UE dressing, max fr LE dressing, total for toileting tasks. Pt gets very fatigued and has very low activity tolerance. Pt states she has poor vision and glasses don't help so she keeps her eyes closed most of the time. ST working with pt on orientation, word generating and problem solving. Recommending 21/11 supervision for safety. assisted with medications and finances prior. Pt continues to receives 1:1 visits from activities. Pt on Cardiac carb controlled diet, accepting med pass, and on medication to stimulate appetite. Pt is out of room isolation 09/11. Explained insurance overage NRD 09/08 with anticipated DC date 09/13. Pt has 4 steps to enter fur 1st flr set up. Inquired how much could physically assist pt at home. states he is not that strong but both insistent they need to be home with one another and he would do anything he could to help her. Discussed SNF/AL options, [facility]. and pt both remain insistent on pt returning home because they cannot be without one another. stated he ordered a Lift[employer] for her at home, and rearranged the bedroom so a BSC could fit next to the pt's side of the bed. Will continue to follow and assist with DC planning. Pascale Lee, BARTOLO CHIEF ENVIRONMENTAL COMMITMENT OFFICER
--- NOTE | 2019-09-04 12:50 | PHA.CONS_ITS ---
<Valentin Patricia C - Last Filed: 09/04/19 12:50> Progress Note - Pharmacy Subjective: [] TCU Admission Objective: Allergies No Known Allergies Allergy (Verified 01/07/19 14:50) Current Medications Generic Name Dose Route Start Last Admin Trade Name Freq PRN Reason Stop Dose Admin Acetaminophen 1,000 mg 08/30/19 14:00 09/04/19 05:22 Tylenol PO 1,000 mg Q8 GEN[facility]EVA Administration Alprazolam 0.5 mg 08/29/19 19:02 09/01/19 21:39 Xanax PO 0.5 mg QHS PRN PRN Administration ANXIETY Amlodipine Besylate 10 mg 08/30/19 06:00 09/04/19 05:22 Norvasc PO 10 mg DAILY GENOVEVA Administration Aspirin 81 mg 08/30/19 08:00 09/04/19 08:21 Ecotrin PO 81 mg DAILYCM GENOVEVA Administration Atorvastatin Calcium 40 mg 08/29/19 22:00 09/03/19 21:20 Lipitor PO 40 mg QHS GENOVEVA Administration Bisacodyl 10 mg 08/29/19 20:55 Dulcolax PO DAILY PRN Constipation Calamine/Phenol 1 applic 08/30/19 06:00 09/04/19 05:25 Calmoseptine Ointment TOPICAL 1 applicatio BID GENOVEVA Administration Protocol Carvedilol 12.5 mg 08/30/19 06:00 09/04/19 05:22 Coreg PO 12.5 mg BID GENOVEVA Administration Citalopram Hydrobromide 20 mg 08/30/19 06:00 09/04/19 05:22 Celexa PO 20 mg DAILY GENOVEVA Administration Dextrose 0 gm 09/03/19 00:25 D50w Syringe IV X1 PRN Hypoglycemia Protocol Donepezil HCl 10 mg 08/29/19 22:00 09/03/19 21:20 Aricept PO 10 mg QHS GENOVEVA Administration Doxepin HCl 10 mg 08/30/19 22:00 09/03/19 21:20 Sinequan PO 10 mg QHS GENOVEVA Administration Glimepiride 4 mg 08/30/19 08:00 09/04/19 08:21 Amaryl PO 4 mg DAILYCM GENOVEVA Administration Glucagon 1 mg 09/03/19 00:25 IM .X1 PRN Hypoglycemia Mirtazapine 7.5 mg 08/30/19 22:00 09/03/19 21:20 Remeron PO 7.5 mg QHS GENOVEVA Administration Multi-Ingredient Cream 1 applic 08/30/19 06:00 09/04/19 05:25 Eucerin TOPICAL 1 applicatio 0600,2200 GENOVEVA Administration Protocol Nutritional Formula (Lactose Free) 120 ml 08/30/19 06:00 09/04/19 05:22 Glucerna Shake PO 120 ml 4X/DAY GENOVEVA Administration Pantoprazole Sodium 40 mg 08/30/19 06:00 09/04/19 05:22 Protonix PO 40 mg DAILY GENOVEVA Administration Polyethylene Glycol 17 gm 08/30/19 06:00 09/04/19 05:22 Miralax PO 17 gm DAILY GENOVEVA Administration Polysaccharide Iron Complex 150 mg 08/31/19 08:00 09/04/19 08:21 Ferrex 150 PO 150 mg DAILYCM GEN[facility]EVA Administration Senna/Docusate Sodium 1 tablet 08/30/19 06:00 09/04/19 05:22 Senokot-S, Zeny-Colace PO 1 tablet BID GENOVEVA Administration Sodium Chloride 2 spray 09/01/19 17:09 [place] Nasal [place] NASAL BID PRN PRN NASAL DRYNESS Tuberculin PPD 5 tu 09/06/19 10:00 Tubersol, Aplisol, Ppd ID 09/06/19 10:01 X1 ONE Problem List (Last Reviewed 01/04/19 @ 13:58 by Kellie Fuentes) Debility (Acute) Acute confusion (Acute) Expressive aphasia (Acute) Stroke aborted by administration of thrombolytic agent (Acute) Acute kidney injury (Acute) Anemia (Acute) Diabetes mellitus (Chronic) Carotid stenosis (Chronic) Vital Signs Temp Pulse Resp BP Pulse Ox 96.9 F L 64 16 116/47 L 94 09/03/19 14:19 09/04/19 10:00 09/04/19 10:00 09/03/19 14:19 09/03/19 14:19 Oxygen Delivery Method Room Air Weight: 65.771 kg Body Mass Index (BMI) 26.5 Finger Stick Blood Glucose 211 Sodium 142 mmol/L (136-145) 08/30/19 05:30 Potassium 4.4 mmol/L (3.5-5.1) 08/30/19 05:30 Chloride 108 mmol/L (98-107) H 08/30/19 05:30 Carbon Dioxide 27.0 mmol/L (21.0-32.0) 08/30/19 05:30 Anion Gap 7 (5-15) 08/30/19 05:30 BUN 37 mg/dL (7-18) H 08/30/19 05:30 Creatinine 1.40 mg/dL (0.55-1.02) H 08/30/19 05:30 Est GFR (MDRD) Af Amer 46 mL/min (>60) L 08/30/19 05:30 Est GFR (MDRD) Non-Af 38 mL/min (>60) L 08/30/19 05:30 BUN/Creatinine Ratio 26.4 RATIO (10-20) H 08/30/19 05:30 Glucose 96 mg/dL (74-106) 08/30/19 05:30 Diabetes Mellitus II - Glimepiride 4MG, Lantus 10 units dinner. Assessment/Plan: 1) Pain: Acetaminophen 1000mg po q8h. Please continue to monitor for signs/symptoms of increased/decreased pain. 2) Aborted Stroke: Aspirin 81mg po daily. Please continue to monitor for signs/ symptoms of bleeding. *3) GERD: Pantoprazole 40mg po daily. Pt's last Magnesium level was 1.6 on 12/2015. PPI's can interfere with the absorption of certain vitamins/minerals. Please consider a yearly Magnesium level while the pt is on a PPI. Thanks *4) Hyperlipidemia: Atorvastatin 40mg po at bedtime. Pt's LFTs are within normal limits. Please consider a yearly Lipid Panel while the pt is on a Statin. Thanks 5) Hypertension: Coreg 12.5mg po bid, Amlodipine 10mg po daily. Pt's average pulse is 65. Pt's average BP is 140.8/60. Please continue to monitor both pulse and bp. 6) Dementia: Donepezil 10mg po qhs. Donepezil is on the BEERS list. It has the potential to cause syncope by bradycardia. Due to the pt also being on Coreg, please continue to monitor for bradycardia. 7) Diabetes: Glimepiride 4mg po daily. Please continue to monitor Blood glucose levels and adjust medications accordingly. Psychotropic Medications: Insomnia: Doxepin 10mg po qhs. Medication due for a GDR 11/2019 Depression: Citalopram 20mg po daily. No GDR as of yet or BEERS recommendation due to recent stroke Anxiety: Alprazolam 0.5mg po qhs prn. Please continue to monitor prn usage, and for signs/symptoms of increased anxiety/restlessness Depression/appetite loss: Mirtazapine 7.5mg po qhs. See dieticians note about weight loss. Unnecessary Medications: none Bowel Regimen: Bisacodyl 10mg po daily prn for constipation, Miralax 17gm po daily, Senna/Docusate 1 tablet po bid. Please continue to monitor prn usage and for signs/symptoms of constipation/diarrhea. Date of Note:: 09/04/19 - Provider Comments Provider responsibility: Provider responsible to enter orders to implement recommendations <Shashank Cedillo Chi - Last Filed: 09/04/19 17:03> Progress Note - Pharmacy Subjective: [] Objective: Allergies No Known Allergies Allergy (Verified 01/07/19 14:50) Current Medications Generic Name Dose Route Start Last Admin Trade Name Freq PRN Reason Stop Dose Admin Acetaminophen 1,000 mg 08/30/19 14:00 09/04/19 13:23 Tylenol PO 1,000 mg Q8 GEN[facility]EVA Administration Alprazolam 0.5 mg 08/29/19 19:02 09/01/19 21:39 Xanax PO 0.5 mg QHS PRN PRN Administration ANXIETY Amlodipine Besylate 10 mg 08/30/19 06:00 09/04/19 05:22 Norvasc PO 10 mg DAILY GEN[facility]EVA Administration Aspirin 81 mg 08/30/19 08:00 09/04/19 08:21 Ecotrin PO 81 mg DAILYCM [facility]A Administration Atorvastatin Calcium 40 mg 08/29/19 22:00 09/03/19 21:20 Lipitor PO 40 mg QHS GENOVEVA Administration Bisacodyl 10 mg 08/29/19 20:55 Dulcolax PO DAILY PRN Constipation Calamine/Phenol 1 applic 08/30/19 06:00 09/04/19 05:25 Calmoseptine Ointment TOPICAL 1 applicatio BID GEN[facility]EVA Administration Protocol Carvedilol 12.5 mg 08/30/19 06:00 09/04/19 05:22 Coreg PO 12.5 mg BID GEN[facility]EVA Administration Citalopram Hydrobromide 20 mg 08/30/19 06:00 09/04/19 05:22 Celexa PO 20 mg DAILY GEN[facility]EVA Administration Dextrose 0 gm 09/03/19 00:25 D50w Syringe IV X1 PRN Hypoglycemia Protocol Donepezil HCl 10 mg 08/29/19 22:00 09/03/19 21:20 Aricept PO 10 mg QHS GEN[facility]EVA Administration Doxepin HCl 10 mg 08/30/19 22:00 09/03/19 21:20 Sinequan PO 10 mg QHS GENOVEVA Administration Glimepiride 4 mg 08/30/19 08:00 09/04/19 08:21 Amaryl PO 4 mg DAILYCM GENOVEVA Administration Glucagon 1 mg 09/03/19 00:25 IM .X1 PRN Hypoglycemia Mirtazapine 7.5 mg 08/30/19 22:00 09/03/19 21:20 Remeron PO 7.5 mg QHS GENOVEVA Administration Multi-Ingredient Cream 1 applic 08/30/19 06:00 09/04/19 05:25 Eucerin TOPICAL 1 applicatio 0600,2200 GEN[facility]EVA Administration Protocol Nutritional Formula (Lactose Free) 120 ml 08/30/19 06:00 09/04/19 13:22 Glucerna Shake PO 120 ml 4X/DAY [facility]A Administration Pantoprazole Sodium 40 mg 08/30/19 06:00 09/04/19 05:22 Protonix PO 40 mg DAILY GEN[facility]EVA Administration Polyethylene Glycol 17 gm 08/30/19 06:00 09/04/19 05:22 Miralax PO 17 gm DAILY GENOVEVA Administration Polysaccharide Iron Complex 150 mg 08/31/19 08:00 09/04/19 08:21 Ferrex 150 PO 150 mg DAILYCM GENOVEVA Administration Senna/Docusate Sodium 1 tablet 08/30/19 06:00 09/04/19 05:22 Senokot-S, Zeny-Colace PO 1 tablet BID GEN[facility]A Administration Sodium Chloride 2 spray 09/01/19 17:09 [place] Nasal [place] NASAL BID PRN PRN NASAL DRYNESS Tuberculin PPD 5 tu 09/06/19 10:00 Tubersol, Aplisol, Ppd ID 09/06/19 10:01 X1 ONE Problem List (Last Reviewed 01/04/19 @ 13:58 by Kellie Fuentes) Debility (Acute) Acute confusion (Acute) Expressive aphasia (Acute) Stroke aborted by administration of thrombolytic agent (Acute) Acute kidney injury (Acute) Anemia (Acute) Diabetes mellitus (Chronic) Carotid stenosis (Chronic) Vital Signs Temp Pulse Resp BP Pulse Ox 97.8 F 69 18 131/64 H 95 09/04/19 14:57 09/04/19 14:57 09/04/19 14:57 09/04/19 14:57 09/04/19 14:57 Oxygen Delivery Method Room Air Weight: 65.771 kg Body Mass Index (BMI) 26.5 Finger Stick Blood Glucose 211 Sodium 142 mmol/L (136-145) 08/30/19 05:30 Potassium 4.4 mmol/L (3.5-5.1) 08/30/19 05:30 Chloride 108 mmol/L (98-107) H 08/30/19 05:30 Carbon Dioxide 27.0 mmol/L (21.0-32.0) 08/30/19 05:30 Anion Gap 7 (5-15) 08/30/19 05:30 BUN 37 mg/dL (7-18) H 08/30/19 05:30 Creatinine 1.40 mg/dL (0.55-1.02) H 08/30/19 05:30 Est GFR (MDRD) Af Amer 46 mL/min (>60) L 08/30/19 05:30 Est GFR (MDRD) Non-Af 38 mL/min (>60) L 08/30/19 05:30 BUN/Creatinine Ratio 26.4 RATIO (10-20) H 08/30/19 05:30 Glucose 96 mg/dL (74-106) 08/30/19 05:30 Assessment/Plan: Psychotropic Medications: Unnecessary Medications: Bowel Regimen: - Provider Comments Provider responsibility: Provider responsible to enter orders to implement recommendations Provider Comments to Recommendations by Pharmacy: Agree
--- NOTE | 2019-09-04 14:52 | NURSING ---
Resident on the phone with her at this time.
[2019-09-04 14:57] VITALS: BP 131/64; PULSE 69; RESP 18; TEMP 36.6; O2SAT 95
[2019-09-04 16:11] LABS: Bedside Glucose 217 mg/dL (70-110)
[2019-09-04 16:55] LABS: Bedside Glucose 217 mg/dL (70-110)
[2019-09-04] MEDS: Donepezil HCl 10 MG Tablet PO (21:01)
[2019-09-04] MEDS: Mirtazapine 15 MG Tablet 7.5 MG PO (21:01)
[2019-09-04] MEDS: Atorvastatin Calcium 40 MG Tablet PO (21:01)
[2019-09-04] MEDS: Doxepin Hydrochloride 10 MG Capsule PO (21:02)
[2019-09-04 22:36] LABS: Bedside Glucose 225 mg/dL (70-110)
[2019-09-05] MEDS: Glucerna Shake 120 ML LIQUID PO ×3 (04:48→17:42)
[2019-09-05] MEDS: Citalopram 20 MG Tablet PO (04:49)
[2019-09-05] MEDS: Acetaminophen 500 MG Tablet 1000 MG PO ×3 (04:49→21:27)
[2019-09-05] MEDS: Carvedilol 12.5 MG Tablet PO ×2 (04:49→17:44)
[2019-09-05] MEDS: amLODIPine 10 MG Tablet PO (04:49)
[2019-09-05] MEDS: Pantoprazole Sodium 40 MG Tablet PO (04:49)
[2019-09-05] MEDS: Menthol/Lanolin/Calamine/Znox 113 GM Tube 1 APPLIC TOPICAL ×2 (04:50→21:28)
[2019-09-05 06:21] LABS: Bedside Glucose 200 mg/dL (70-110)
[2019-09-05] MEDS: Aspirin E.C. 81 MG Tablet PO (08:43)
[2019-09-05] MEDS: Iron Polysaccharide Complex 150 MG CAPSULE PO (08:44)
[2019-09-05] MEDS: Glimepiride 4 MG Tablet PO (08:44)
[2019-09-05 11:55] LABS: Bedside Glucose 199 mg/dL (70-110)
[2019-09-05 14:29] VITALS: BP 122/44; PULSE 60; RESP 14; TEMP 37.1; O2SAT 96
[2019-09-05 16:21] LABS: Bedside Glucose 191 mg/dL (70-110)
[2019-09-05] MEDS: Senna/Docusate Sodium 1 Tablet PO (17:42)
[2019-09-05 21:16] LABS: Bedside Glucose 217 mg/dL (70-110)
[2019-09-05] MEDS: Doxepin Hydrochloride 10 MG Capsule PO (21:27)
[2019-09-05] MEDS: Atorvastatin Calcium 40 MG Tablet PO (21:27)
[2019-09-05] MEDS: Mirtazapine 15 MG Tablet 7.5 MG PO (21:27)
[2019-09-05] MEDS: Donepezil HCl 10 MG Tablet PO (21:27)
[2019-09-06] MEDS: Glucerna Shake 120 ML LIQUID PO ×4 (04:58→21:10)
[2019-09-06] MEDS: Carvedilol 12.5 MG Tablet PO ×2 (04:58→17:02)
[2019-09-06] MEDS: amLODIPine 10 MG Tablet PO (04:58)
[2019-09-06] MEDS: Polyethylene Glycol 3350 17 GM PACKET PO (04:58)
[2019-09-06] MEDS: Menthol/Lanolin/Calamine/Znox 113 GM Tube 1 APPLIC TOPICAL ×2 (04:59→17:02)
[2019-09-06] MEDS: Pantoprazole Sodium 40 MG Tablet PO (04:59)
[2019-09-06] MEDS: Acetaminophen 500 MG Tablet 1000 MG PO ×3 (04:59→21:08)
[2019-09-06] MEDS: Senna/Docusate Sodium 1 Tablet PO ×2 (04:59→17:02)
[2019-09-06] MEDS: Citalopram 20 MG Tablet PO (04:59)
[2019-09-06 05:37] LABS: Absolute Lymphocyte Count 1.54 X10^3/uL (0.83-4.51); Absolute Neutrophil Count 6.3 X10^3/uL (2.0-7.7); Basophil# 0.04 X10^3/uL; Basophil% 0.4 % (0-1); Eosinophil# 0.16 X10^3/uL; Eosinophils% 1.8 % (0-5); Hematocrit 30.5 % (37-47); Hemoglobin 9.3 g/dL (12.0-15.0); Lymphocyte # 1.54 X10^3/ul (4.0); Lymphocyte % 17.1 % (19-41); Mean Corp Hgb Conc 30.5 g/dL (32-36); Mean Corpuscular Hgb 27.7 pg (27.0-32.0); Mean Corpuscular Volume 90.8 fL (81-99); Mean Platelet Vol. 10.8 fl (6.2-12.0); Monocyte# 0.87 X10^3/uL; Monocyte% 9.7 % (0-10); NRBC Flagged by Analyzer 0 % (0-5); Neutrophil # 6.31 X10^3/uL (2.7-7.7); Neutrophil % 70.3 % (47-70); Platelet Count 304 K/mm3 (150-450); RBC Distribution Width CV 18.3 % (11.6-14.6); Red Blood Count 3.36 M/mm3 (4.2-5.4)
[2019-09-06 06:03] LABS: Anion Gap 7 (5-15); BUN 43 mg/dL (7-18); BUN/Creat Ratio 28.1 RATIO (10-20); Calcium,Total 9.1 mg/dL (8.5-10.1); Chloride 108 mmol/L (98-107); Creatinine, Serum 1.53 mg/dL (0.55-1.02); EST Glomerular Filtration Rate 34 mL/min (>60); Est Glom Filt Rate - Afr Amer 42 mL/min (>60); Estimated Creatinine Clearance 21.65 ml/min; Glucose 132 mg/dL (74-106); Potassium 4.4 mmol/L (3.5-5.1); Sodium Level 140 mmol/L (136-145)
[2019-09-06 06:26] LABS: Bedside Glucose 152 mg/dL (70-110)
[2019-09-06] MEDS: Aspirin E.C. 81 MG Tablet PO (08:20)
[2019-09-06] MEDS: Glimepiride 4 MG Tablet PO (08:20)
[2019-09-06] MEDS: Iron Polysaccharide Complex 150 MG CAPSULE PO (08:20)
[2019-09-06] MEDS: Tuberculin,Purif.prot.deriv. 50 TU/ML Vial 5 ML ID (09:42)
[2019-09-06 11:11] LABS: Bedside Glucose 224 mg/dL (70-110)
[2019-09-06 14:43] VITALS: BP 117/72; PULSE 67; RESP 14; TEMP 36.6; O2SAT 94
[2019-09-06 16:50] LABS: Bedside Glucose 197 mg/dL (70-110)
[2019-09-06] MEDS: Doxepin Hydrochloride 10 MG Capsule PO (21:07)
[2019-09-06] MEDS: Donepezil HCl 10 MG Tablet PO (21:07)
[2019-09-06] MEDS: Mirtazapine 15 MG Tablet 7.5 MG PO (21:08)
[2019-09-06] MEDS: Atorvastatin Calcium 40 MG Tablet PO (21:08)
[2019-09-06 21:10] LABS: Bedside Glucose 141 mg/dL (70-110)
[2019-09-07] MEDS: ALPRAZolam 0.5 MG Tablet PO
[2019-09-07 04:45] VITALS: BP 136/52; PULSE 66
[2019-09-07] MEDS: Citalopram 20 MG Tablet PO (04:47)
[2019-09-07] MEDS: Carvedilol 12.5 MG Tablet PO ×2 (04:47→17:05)
[2019-09-07] MEDS: Polyethylene Glycol 3350 17 GM PACKET PO (04:47)
[2019-09-07] MEDS: Glucerna Shake 120 ML LIQUID PO ×4 (04:47→20:46)
[2019-09-07] MEDS: amLODIPine 10 MG Tablet PO (04:48)
[2019-09-07] MEDS: Acetaminophen 500 MG Tablet 1000 MG PO ×3 (04:48→20:51)
[2019-09-07] MEDS: Senna/Docusate Sodium 1 Tablet PO ×2 (04:48→17:05)
[2019-09-07] MEDS: Pantoprazole Sodium 40 MG Tablet PO (04:48)
[2019-09-07] MEDS: Menthol/Lanolin/Calamine/Znox 113 GM Tube 1 APPLIC TOPICAL ×2 (04:56→17:06)
[2019-09-07 06:26] LABS: Bedside Glucose 116 mg/dL (70-110)
[2019-09-07] MEDS: Iron Polysaccharide Complex 150 MG CAPSULE PO (08:43)
[2019-09-07] MEDS: Glimepiride 4 MG Tablet PO (08:43)
[2019-09-07] MEDS: Aspirin E.C. 81 MG Tablet PO (08:43)
[2019-09-07 11:21] LABS: Bedside Glucose 172 mg/dL (70-110)
[2019-09-07 14:32] VITALS: BP 126/50; PULSE 81; RESP 14; TEMP 36.1; O2SAT 96
[2019-09-07 16:30] LABS: Bedside Glucose 210 mg/dL (70-110)
[2019-09-07] MEDS: Sodium Chloride 0.65% 1 SPRAY SPRAY.BTL 2 SPRAY NASAL (20:46)
[2019-09-07] MEDS: Atorvastatin Calcium 40 MG Tablet PO (20:50)
[2019-09-07] MEDS: Donepezil HCl 10 MG Tablet PO (20:50)
[2019-09-07] MEDS: Doxepin Hydrochloride 10 MG Capsule PO (20:52)
[2019-09-07] MEDS: Mirtazapine 15 MG Tablet 7.5 MG PO (20:52)
[2019-09-07 21:11] LABS: Bedside Glucose 154 mg/dL (70-110)
[2019-09-08] MEDS: Glucerna Shake 120 ML LIQUID PO ×4 (05:00→20:35)
[2019-09-08] MEDS: Polyethylene Glycol 3350 17 GM PACKET PO (05:00)
[2019-09-08] MEDS: amLODIPine 10 MG Tablet PO (05:01)
[2019-09-08] MEDS: Carvedilol 12.5 MG Tablet PO ×2 (05:01→18:05)
[2019-09-08] MEDS: Citalopram 20 MG Tablet PO (05:01)
[2019-09-08] MEDS: Senna/Docusate Sodium 1 Tablet PO (05:01)
[2019-09-08] MEDS: Acetaminophen 500 MG Tablet 1000 MG PO ×3 (05:01→20:43)
[2019-09-08] MEDS: Pantoprazole Sodium 40 MG Tablet PO (05:01)
[2019-09-08 05:04] VITALS: BP 123/51; PULSE 61
[2019-09-08] MEDS: Menthol/Lanolin/Calamine/Znox 113 GM Tube 1 APPLIC TOPICAL ×2 (05:05→18:08)
[2019-09-08 06:21] LABS: Bedside Glucose 97 mg/dL (70-110)
[2019-09-08] MEDS: Iron Polysaccharide Complex 150 MG CAPSULE PO (08:40)
[2019-09-08] MEDS: Glimepiride 4 MG Tablet PO (08:40)
[2019-09-08] MEDS: Aspirin E.C. 81 MG Tablet PO (08:40)
[2019-09-08 10:00] VITALS: PULSE 48; RESP 16; O2SAT 96
[2019-09-08 11:15] LABS: Bedside Glucose 161 mg/dL (70-110)
[2019-09-08 14:53] VITALS: BP 121/54; PULSE 72; RESP 14; TEMP 36.1; O2SAT 96
[2019-09-08 16:30] LABS: Bedside Glucose 180 mg/dL (70-110)
[2019-09-08] MEDS: Atorvastatin Calcium 40 MG Tablet PO (20:36)
[2019-09-08] MEDS: Donepezil HCl 10 MG Tablet PO (20:36)
[2019-09-08] MEDS: Mirtazapine 15 MG Tablet 7.5 MG PO (20:36)
[2019-09-08] MEDS: Doxepin Hydrochloride 10 MG Capsule PO (20:36)
[2019-09-08] MEDS: Sodium Chloride 0.65% 1 SPRAY SPRAY.BTL 2 SPRAY NASAL (20:37)
[2019-09-08] MEDS: ALPRAZolam 0.5 MG Tablet PO (20:48)
[2019-09-08 22:15] LABS: Bedside Glucose 240 mg/dL (70-110)
--- NOTE | 2019-09-09 02:00 | NURSING ---
Pt resting in recliner, eyes closed.
[2019-09-09] MEDS: Glucerna Shake 120 ML LIQUID PO ×4 (05:08→20:19)
[2019-09-09] MEDS: Polyethylene Glycol 3350 17 GM PACKET PO (05:09)
[2019-09-09] MEDS: Carvedilol 12.5 MG Tablet PO ×2 (05:10→17:56)
[2019-09-09] MEDS: amLODIPine 10 MG Tablet PO (05:10)
[2019-09-09] MEDS: Citalopram 20 MG Tablet PO (05:10)
[2019-09-09] MEDS: Pantoprazole Sodium 40 MG Tablet PO (05:10)
[2019-09-09] MEDS: Acetaminophen 500 MG Tablet 1000 MG PO ×3 (05:10→20:19)
[2019-09-09] MEDS: Senna/Docusate Sodium 1 Tablet PO ×2 (05:10→17:56)
[2019-09-09] MEDS: Menthol/Lanolin/Calamine/Znox 113 GM Tube 1 APPLIC TOPICAL ×2 (05:12→17:56)
[2019-09-09 05:13] VITALS: BP 133/40; PULSE 61
[2019-09-09 06:10] LABS: Bedside Glucose 124 mg/dL (70-110)
[2019-09-09] MEDS: Iron Polysaccharide Complex 150 MG CAPSULE PO (08:58)
[2019-09-09] MEDS: Aspirin E.C. 81 MG Tablet PO (08:58)
[2019-09-09] MEDS: Glimepiride 4 MG Tablet PO (08:58)
[2019-09-09 11:30] LABS: Bedside Glucose 203 mg/dL (70-110)
--- NOTE | 2019-09-09 15:41 | CASEMGMT ---
Social Work Insurance approved pt with [employer] 09/15. Spoke with and would like pt DC home 09/12. Spoke with pt whom agrees. Both agree to DC home with hospice. Read list of hospice agencies - chose [facility]. Referral made. to transport pt home. Plan: DC home with and [facility] 09/12 BARTOLO MarshallW
[2019-09-09 16:00] VITALS: BP 128/61; PULSE 70; RESP 14; TEMP 36.2; O2SAT 96
[2019-09-09 16:41] LABS: Bedside Glucose 262 mg/dL (70-110)
[2019-09-09] MEDS: Atorvastatin Calcium 40 MG Tablet PO (20:20)
[2019-09-09] MEDS: Mirtazapine 15 MG Tablet 7.5 MG PO (20:20)
[2019-09-09] MEDS: Doxepin Hydrochloride 10 MG Capsule PO (20:20)
[2019-09-09] MEDS: Donepezil HCl 10 MG Tablet PO (20:20)
[2019-09-09] MEDS: Sodium Chloride 0.65% 1 SPRAY SPRAY.BTL 2 SPRAY NASAL (20:22)
--- NOTE | 2019-09-09 20:28 | PCM.DC ---
- Discharge Diagnoses Current Active Problems: Current Active and Chronic Problems (Last Reviewed 01/04/19 @ 13:58 by Kellie Fuentes) Debility (Acute) Acute confusion (Acute) Expressive aphasia (Acute) Stroke aborted by administration of thrombolytic agent (Acute) Acute kidney injury (Acute) Anemia (Acute) Diabetes mellitus (Chronic) Carotid stenosis (Chronic) You will use the following diet at home:: No restrictions, Regular Your food should be the consistency of: Regular Your liquids should be the consistency of: Regular/Thin Discharge Activity: Return to Normal Activity, May Shower, Use Walker Weight Bearing Status: Weight bearing as tolerated Call your doctor if you observe: Fever of 101 or Higher, Inability to urinate, Inability to have a bowel movement, Shortness of breath, Chest pain, Uncontrolled pain Allergies/Adverse Reactions: Allergies No Known Allergies Allergy (Verified 01/07/19 14:50) Medications to take at Discharge Glimepiride [Amaryl] 4 mg PO DAILY 08/20/19 Aspirin [Aspirin EC] 81 mg PO DAILY 08/29/19 Insulin Glargine [Lantus SoloStar Pen] 10 units SUBCUT DINNER 08/29/19 ALPRAZolam [Xanax] 0.5 mg PO QHS PRN PRN #30 tablet 09/09/19 Acetaminophen [Tylenol] 1,000 mg PO Q8 tab 09/09/19 Amlodipine [Norvasc] 10 mg PO DAILY #30 tab 09/09/19 Atorvastatin Calcium [Lipitor] 40 mg PO QHS #30 tab 09/09/19 Carvedilol [Coreg] 12.5 mg PO BID #30 tab 09/09/19 Citalopram [Celexa] 20 mg PO DAILY #30 tab 09/09/19 Donepezil HCl [Aricept] 10 mg PO QHS #30 tab 09/09/19 Doxepin HCl [Sinequan] 10 mg PO QHS #30 cap 09/09/19 Insulin Glargine [Lantus SoloStar Pen] 10 units SUBCUT DINNER #1 pen 09/09/19 Iron Polysaccharide Complex [Ferrex 150] 150 mg PO DAILYCM #30 cap 09/09/19 Menthol/Lanolin/Calamine/Znox [Calmoseptine Ointment] 1 applic TOPICAL BID tube 09/09/19 Mineral Oil/Petrolatum,White [Eucerin] 1 applic TOPICAL 0600,2200 jar 09/09/19 Mirtazapine [Remeron] 7.5 mg PO QHS #30 tab 09/09/19 Pantoprazole Sodium [Protonix] 40 mg PO DAILY #30 tab 09/09/19 Sodium Chloride 0.65% [[place] Nasal [place]] 2 spray NASAL BID PRN PRN spray.btl 09/09/19 The following prescriptions were given: Donepezil HCl [Aricept] 10 mg PO QHS #30 tab Transmission Status: Pending to [id number] Citalopram [Celexa] 20 mg PO DAILY #30 tab Transmission Status: [facility]ending to [facility][id number] Carvedilol [Coreg] 12.5 mg PO BID #30 tab Transmission Status: Pending to [facility] #[id number] Iron Polysaccharide Complex [Ferrex 150] 150 mg PO DAILYCM #30 cap Transmission Status: [facility] to [facility] #[id number] Insulin Glargine [Lantus SoloStar Pen] 10 units SUBCUT DINNER #1 pen Transmission Status: [facility] to [facility] #[id number] Atorvastatin Calcium [Lipitor] 40 mg PO QHS #30 tab Transmission Status: [facility] to [facility][id number] Amlodipine [Norvasc] 10 mg PO DAILY #30 tab Transmission Status: [facility] to [facility][id number] Pantoprazole Sodium [Protonix] 40 mg PO DAILY #30 tab Transmission Status: [facility]ending to [facility] #[id number] Mirtazapine [Remeron] 7.5 mg PO QHS #30 tab Transmission Status: [facility] to [facility] #[id number] Doxepin HCl [Sinequan] 10 mg PO QHS #30 cap Transmission Status: [facility] to [facility] #[id number] ALPRAZolam [Xanax] 0.5 mg PO QHS PRN PRN #30 tablet PRN Reason: Anxiety Transmission Status: Received by [facility]/pharmacy #[id number] Primary Care Physician: Shun Michelle MD [Primary Care Provider] - Please follow up with your Primary Care Physician in: 1 week. Test Results: Test results from this visit will be discussed in further detail at your follow-up appointment, if applicable. Please Follow Up With: Phoenix Laurent Jr, neurology When: [phone] Proposed Discharge Date: 09/13/19
--- NOTE | 2019-09-09 20:29 | DS.PCM_ITS ---
Discharge Date and Diagnosis - Problem List Patient Problems: Active and Suspected Problems (Last Reviewed 01/04/19 @ 13:58 by Kellie Fuentes) Debility (Acute) Acute confusion (Acute) Expressive aphasia (Acute) Stroke aborted by administration of thrombolytic agent (Acute) Acute kidney injury (Acute) Anemia (Acute) Date of Admission: 08/29/19 Date of Discharge: 09/13/19 - Primary Discharge Diagnosis Active and Suspected Problems (Last Reviewed 01/04/19 @ 13:58 by Kellie Fuentes) Debility (Acute) Acute confusion (Acute) Expressive aphasia (Acute) Stroke aborted by administration of thrombolytic agent (Acute) Acute kidney injury (Acute) Anemia (Acute) - Secondary Discharge Diagnosis Chronic Problems (Last Reviewed 01/04/19 @ 13:58 by Kellie Fuentes) Diabetes mellitus (Chronic) Carotid stenosis (Chronic) Demand ischemia of myocardium (Chronic ~12/2015) Hyperlipidemia (Chronic ~12/2015) Non-ST elevation MA (NSTEMI) (Chronic) Hypertension (Chronic) Type II diabetes mellitus (Chronic) Hospital Course and Treatment Imaging Results: 08/30/19 17:11 Diet: Cardiac: Carb-Controlled Is pt able to select menu?: Yes Labs (Last 48 Hours) 09/07/19 09/08/19 09/08/19 20:57 06:06 10:44 POC Glucose 154 H 97 161 H 09/08/19 09/08/19 09/09/19 16:14 22:14 06:04 POC Glucose 180 H 240 H 124 H 09/09/19 09/09/19 11:26 16:15 POC Glucose 203 H 262 H Operations: None Procedures: None Summary of Care Provided: The patient is a 83 year old Female with below past medical history hospitalized for aborted stroke after tPA administration, complicated by acute kidney injury, anemia, ventricular tachycardia, pulmonary edema, admitted to TCU with debility, here for rehabilitation, strengthening, prior to discharge home with . Discharge home with , [facility]. Patient Problems: Active and Suspected Problems (Last Reviewed 01/04/19 @ 13:58 by Kellie Fuentes) Debility (Acute) Acute confusion (Acute) Expressive aphasia (Acute) Stroke aborted by administration of thrombolytic agent (Acute) Acute kidney injury (Acute) Anemia (Acute) - Physical Exam Vitals/I&O's: Vital Signs Temp Pulse Resp BP Pulse Ox 97.2 F L 70 14 128/61 H 96 09/09/19 16:00 09/09/19 16:00 09/09/19 16:00 09/09/19 16:00 09/09/19 16:00 Oxygen Delivery Method Room Air Weight: 65.771 kg Body Mass Index (BMI) 26.5 Finger Stick Blood Glucose 211 Intake and Output for Last 24 Hours 09/07/19 09/08/19 09/09/19 23:59 23:59 23:59 Intake Total 360 / 360 420 / 420 240 / 240 Balance 360 / 360 420 / 420 240 / 240 Laboratory Results 09/08/19 22:14: POC Glucose 240 H 09/09/19 06:04: POC Glucose 124 H 09/09/19 11:26: POC Glucose 203 H 09/09/19 16:15: POC Glucose 262 H Current Medications Acetaminophen (Tylenol) 1,000 mg PO Q8 [facility] Last Admin: 09/09/19 20:19 Dose: 1,000 mg Documented by: Alprazolam (Xanax) 0.5 mg PO QHS PRN PRN PRN Reason: ANXIETY Last Admin: 09/08/19 20:48 Dose: 0.5 mg Documented by: Amlodipine Besylate (Norvasc) 10 mg PO DAILY [facility] Last Admin: 09/09/19 05:10 Dose: 10 mg Documented by: [facility] Admin: 09/09/19 08:58 Dose: 81 mg Documented by: Atorvastatin Calcium (Lipitor) 40 mg PO QHS [facility] Last Admin: 09/09/19 20:20 Dose: 40 mg Documented by: Bisacodyl (Dulcolax) 10 mg PO DAILY PRN PRN Reason: Constipation Calamine/Phenol (Calmoseptine Ointment) 1 applic TOPICAL BID [facility]; Protocol Last Admin: 09/09/19 17:56 Dose: 1 applicatio Documented by: Carvedilol (Coreg) 12.5 mg PO BID [facility] Last Admin: 09/09/19 17:56 Dose: 12.5 mg Documented by: Citalopram Hydrobromide (Celexa) 20 mg PO DAILY [facility] Last Admin: 09/09/19 05:10 Dose: 20 mg Documented by: Dextrose (D50w Syringe) 0 gm IV X1 PRN; Protocol PRN Reason: Hypoglycemia Donepezil HCl (Aricept) 10 mg PO QHS [facility] Last Admin: 09/09/19 20:20 Dose: 10 mg Documented by: Doxepin HCl (Sinequan) 10 mg PO QHS [facility] Last Admin: 09/09/19 20:20 Dose: 10 mg Documented by: [facility]) [facility] Admin: 09/09/19 08:58 Dose: 4 mg Documented by: Glucagon () 1 mg IM .X1 PRN PRN Reason: Hypoglycemia Insulin Glargine (Lantus (Bkc)) 10 units SC DINNER [facility] Last Admin: 09/09/19 17:57 Dose: 10 units Documented by: Mirtazapine (Remeron) 7.5 mg PO QHS [facility] Last Admin: 09/09/19 20:20 Dose: 7.5 mg Documented by: Multi-Ingredient Cream (Eucerin) 1 applic TOPICAL 0600,2200 [facility]; Protocol Last Admin: 09/09/19 20:22 Dose: 1 applicatio Documented by: Nutritional Formula (Lactose Free) (Glucerna Shake) 120 ml PO 4X/DAY [facility] Last Admin: 09/09/19 20:19 Dose: 120 ml Documented by: Pantoprazole Sodium (Protonix) 40 mg PO DAILY [facility] Last Admin: 09/09/19 05:10 Dose: 40 mg Documented by: Polyethylene Glycol (Miralax) 17 gm PO DAILY [facility] Last Admin: 09/09/19 05:09 Dose: 17 gm Documented by: Polysaccharide Iron Complex (Ferrex 150) [facility] Last Admin: 09/09/19 08:58 Dose: 150 mg Documented by: Senna/Docusate Sodium (Senokot-S, Zeny-Colace) 1 tablet PO BID [facility] Last Admin: 09/09/19 17:56 Dose: 1 tablet Documented by: Sodium Chloride ([place] Nasal [place]) 2 spray NASAL BID PRN PRN PRN Reason: NASAL DRYNESS Last Admin: 09/09/19 20:22 Dose: 2 spray Documented by: Discharge Diet: No Restrictions Discharge Activity: Return to Normal Activity, May Shower, Use Walker Weight Bearing Status: Weight bearing as tolerated Call your doctor if you observe: Fever of 101 or Higher, Inability to urinate, Inability to have a bowel movement, Shortness of breath, Chest pain, Uncontrolled pain Home Medications: Medications to take at Discharge Glimepiride [Amaryl] 4 mg PO DAILY 08/20/19 Aspirin [Aspirin EC] 81 mg PO DAILY 08/29/19 Insulin Glargine [Lantus SoloStar Pen] 10 units SUBCUT DINNER 08/29/19 ALPRAZolam [Xanax] 0.5 mg PO QHS PRN PRN #30 tablet 09/09/19 Acetaminophen [Tylenol] 1,000 mg PO Q8 tab 09/09/19 Amlodipine [Norvasc] 10 mg PO DAILY #30 tab 09/09/19 Atorvastatin Calcium [Lipitor] 40 mg PO QHS #30 tab 09/09/19 Carvedilol [Coreg] 12.5 mg PO BID #30 tab 09/09/19 Citalopram [Celexa] 20 mg PO DAILY #30 tab 09/09/19 Donepezil HCl [Aricept] 10 mg PO QHS #30 tab 09/09/19 Doxepin HCl [Sinequan] 10 mg PO QHS #30 cap 09/09/19 Insulin Glargine [Lantus SoloStar Pen] 10 units SUBCUT DINNER #1 pen 09/09/19 Iron Polysaccharide Complex [Ferrex 150] 150 mg PO DAILYCM #30 cap 09/09/19 Menthol/Lanolin/Calamine/Znox [Calmoseptine Ointment] 1 applic TOPICAL BID tube 09/09/19 Mineral Oil/Petrolatum,White [Eucerin] 1 applic TOPICAL 0600,2200 jar 09/09/19 Mirtazapine [Remeron] 7.5 mg PO QHS #30 tab 09/09/19 Pantoprazole Sodium [Protonix] 40 mg PO DAILY #30 tab 09/09/19 Sodium Chloride 0.65% [[place] Nasal [place]] 2 spray NASAL BID PRN PRN spray.btl 09/09/19 Following Prescrptions Were Given to Patient: Donepezil HCl [Aricept] 10 mg PO QHS #30 tab Transmission Status: [id number] Citalopram [Celexa] 20 mg PO DAILY #30 tab Transmission Status: [facility][id number] Carvedilol [Coreg] 12.5 mg PO BID #30 tab Transmission Status: [facility] #[id number] Iron Polysaccharide Complex [Ferrex 150] 150 mg PO DAILYCM #30 cap Transmission Status: [facility] #[id number] Insulin Glargine [Lantus SoloStar Pen] 10 units SUBCUT DINNER #1 pen Transmission Status: [facility][id number] Atorvastatin Calcium [Lipitor] 40 mg PO QHS #30 tab Transmission Status: [facility][id number] Amlodipine [Norvasc] 10 mg PO DAILY #30 tab Transmission Status: [facility][id number] Pantoprazole Sodium [Protonix] 40 mg PO DAILY #30 tab Transmission Status: [facility] #[id number] Mirtazapine [Remeron] 7.5 mg PO QHS #30 tab Transmission Status: [facility] #[id number] Doxepin HCl [Sinequan] 10 mg PO QHS #30 cap Transmission Status: [facility] #[id number] ALPRAZolam [Xanax] 0.5 mg PO QHS PRN PRN #30 tablet PRN Reason: Anxiety Transmission Status: [facility][id number] Primary Care Physician: Shun Michelle MD [Primary Care Provider] - Please follow up with your Primary Care Physician in: 1 week. Please Follow Up With: Phoenix Laurent Jr, neurology When: [phone] Disposition: Home with Hospice Minutes spent on discharge:: 35 Patient Condition:: Poor Medical Necessity - Tobacco Use Smoking Status: Never smoker Tobacco Use: Non-smoker Meaningful Use Info Meaningful Use Diagnoses (Choose all that apply): None applicable
[2019-09-09 21:41] LABS: Bedside Glucose 223 mg/dL (70-110)
[2019-09-10 03:31] VITALS: RESP 22; TEMP 36.7
[2019-09-10] MEDS: Polyethylene Glycol 3350 17 GM PACKET PO (06:16)
[2019-09-10] MEDS: Glucerna Shake 120 ML LIQUID PO ×4 (06:16→20:54)
[2019-09-10] MEDS: Acetaminophen 500 MG Tablet 1000 MG PO ×3 (06:16→20:54)
[2019-09-10] MEDS: Menthol/Lanolin/Calamine/Znox 113 GM Tube 1 APPLIC TOPICAL ×2 (06:16→18:28)
[2019-09-10] MEDS: Carvedilol 12.5 MG Tablet PO ×2 (06:17→18:26)
[2019-09-10] MEDS: Citalopram 20 MG Tablet PO (06:17)
[2019-09-10] MEDS: amLODIPine 10 MG Tablet PO (06:17)
[2019-09-10] MEDS: Senna/Docusate Sodium 1 Tablet PO ×2 (06:17→18:27)
[2019-09-10] MEDS: Pantoprazole Sodium 40 MG Tablet PO (06:17)
[2019-09-10 06:31] LABS: Bedside Glucose 93 mg/dL (70-110)
--- NOTE | 2019-09-10 07:52 | MDS.RN ---
Information for the mds was obtained from review of the clinical record, interview of resident, staff, and direct observation of resident's care.
[2019-09-10] MEDS: Iron Polysaccharide Complex 150 MG CAPSULE PO (08:41)
[2019-09-10] MEDS: Aspirin E.C. 81 MG Tablet PO (08:41)
[2019-09-10] MEDS: Glimepiride 4 MG Tablet PO (08:41)
[2019-09-10 11:31] LABS: Bedside Glucose 229 mg/dL (70-110)
[2019-09-10 16:03] VITALS: BP 132/67; PULSE 66; RESP 18; TEMP 36.3; O2SAT 97
[2019-09-10 17:11] LABS: Bedside Glucose 163 mg/dL (70-110)
--- NOTE | 2019-09-10 18:41 | NURSING ---
Dr Cedillo aware of 9 lb weight gain since weighed 6 days ago.
[2019-09-10] MEDS: Mirtazapine 15 MG Tablet 7.5 MG PO (20:53)
[2019-09-10] MEDS: Atorvastatin Calcium 40 MG Tablet PO (20:54)
[2019-09-10] MEDS: Donepezil HCl 10 MG Tablet PO (20:55)
[2019-09-10] MEDS: Doxepin Hydrochloride 10 MG Capsule PO (20:55)
[2019-09-10 21:11] LABS: Bedside Glucose 189 mg/dL (70-110)
[2019-09-11] MEDS: Carvedilol 12.5 MG Tablet PO ×2 (06:08→17:44)
[2019-09-11] MEDS: Senna/Docusate Sodium 1 Tablet PO ×2 (06:08→17:45)
[2019-09-11] MEDS: Citalopram 20 MG Tablet PO (06:08)
[2019-09-11] MEDS: amLODIPine 10 MG Tablet PO (06:08)
[2019-09-11] MEDS: Pantoprazole Sodium 40 MG Tablet PO (06:09)
[2019-09-11] MEDS: Menthol/Lanolin/Calamine/Znox 113 GM Tube 1 APPLIC TOPICAL ×2 (06:09→17:44)
[2019-09-11] MEDS: Acetaminophen 500 MG Tablet 1000 MG PO ×3 (06:09→22:14)
[2019-09-11] MEDS: Polyethylene Glycol 3350 17 GM PACKET PO (06:10)
[2019-09-11 06:26] LABS: Bedside Glucose 94 mg/dL (70-110)
[2019-09-11] MEDS: Glucerna Shake 120 ML LIQUID PO ×4 (08:09→22:10)
[2019-09-11] MEDS: Aspirin E.C. 81 MG Tablet PO (08:09)
[2019-09-11] MEDS: Glimepiride 4 MG Tablet PO (08:09)
[2019-09-11] MEDS: Iron Polysaccharide Complex 150 MG CAPSULE PO (08:09)
[2019-09-11 11:16] LABS: Bedside Glucose 195 mg/dL (70-110)
[2019-09-11 15:28] VITALS: BP 133/43; PULSE 68; RESP 14; TEMP 36.1; O2SAT 96
[2019-09-11 16:50] LABS: Bedside Glucose 216 mg/dL (70-110)
[2019-09-11 21:11] LABS: Bedside Glucose 195 mg/dL (70-110)
[2019-09-11] MEDS: Atorvastatin Calcium 40 MG Tablet PO (22:12)
[2019-09-11] MEDS: Mirtazapine 15 MG Tablet 7.5 MG PO (22:12)
[2019-09-11] MEDS: Donepezil HCl 10 MG Tablet PO (22:13)
[2019-09-11] MEDS: Doxepin Hydrochloride 10 MG Capsule PO (22:13)
[2019-09-11] MEDS: ALPRAZolam 0.5 MG Tablet PO (22:24)
[2019-09-12] MEDS: Glucerna Shake 120 ML LIQUID PO ×4 (06:06→20:27)
[2019-09-12] MEDS: Polyethylene Glycol 3350 17 GM PACKET PO (06:07)
[2019-09-12] MEDS: Carvedilol 12.5 MG Tablet PO ×2 (06:09→17:58)
[2019-09-12] MEDS: amLODIPine 10 MG Tablet PO (06:09)
[2019-09-12] MEDS: Pantoprazole Sodium 40 MG Tablet PO (06:09)
[2019-09-12] MEDS: Acetaminophen 500 MG Tablet 1000 MG PO ×3 (06:09→20:27)
[2019-09-12] MEDS: Citalopram 20 MG Tablet PO (06:10)
[2019-09-12] MEDS: Menthol/Lanolin/Calamine/Znox 113 GM Tube 1 APPLIC TOPICAL ×2 (06:10→12:23)
[2019-09-12] MEDS: Senna/Docusate Sodium 1 Tablet PO (06:10)
[2019-09-12 06:18] VITALS: BP 117/57; PULSE 63; RESP 16; TEMP 36.1; O2SAT 98
[2019-09-12 06:26] LABS: Bedside Glucose 93 mg/dL (70-110)
[2019-09-12] MEDS: Iron Polysaccharide Complex 150 MG CAPSULE PO (08:46)
[2019-09-12] MEDS: Glimepiride 4 MG Tablet PO (08:46)
[2019-09-12] MEDS: Aspirin E.C. 81 MG Tablet PO (08:46)
[2019-09-12 10:00] VITALS: PULSE 60; RESP 16; O2SAT 95
[2019-09-12 11:06] LABS: Bedside Glucose 180 mg/dL (70-110)
[2019-09-12 15:10] VITALS: BP 125/50; PULSE 61; RESP 18; TEMP 36.3; O2SAT 99
[2019-09-12 18:10] LABS: Bedside Glucose 254 mg/dL (70-110)
[2019-09-12] MEDS: Sodium Chloride 0.65% 1 SPRAY SPRAY.BTL 2 SPRAY NASAL (20:26)
[2019-09-12] MEDS: Donepezil HCl 10 MG Tablet PO (20:27)
[2019-09-12] MEDS: Mirtazapine 15 MG Tablet 7.5 MG PO (20:28)
[2019-09-12] MEDS: Doxepin Hydrochloride 10 MG Capsule PO (20:28)
[2019-09-12] MEDS: Atorvastatin Calcium 40 MG Tablet PO (20:29)
[2019-09-12 21:21] LABS: Bedside Glucose 231 mg/dL (70-110)
[2019-09-13] MEDS: Glucerna Shake 120 ML LIQUID PO (04:38)
[2019-09-13] MEDS: Polyethylene Glycol 3350 17 GM PACKET PO (04:39)
[2019-09-13] MEDS: Carvedilol 12.5 MG Tablet PO (04:40)
[2019-09-13] MEDS: Citalopram 20 MG Tablet PO (04:40)
[2019-09-13] MEDS: Senna/Docusate Sodium 1 Tablet PO (04:40)
[2019-09-13] MEDS: Acetaminophen 500 MG Tablet 1000 MG PO (04:40)
[2019-09-13] MEDS: Pantoprazole Sodium 40 MG Tablet PO (04:40)
[2019-09-13] MEDS: amLODIPine 10 MG Tablet PO (04:40)
[2019-09-13] MEDS: Menthol/Lanolin/Calamine/Znox 113 GM Tube 1 APPLIC TOPICAL (04:43)
[2019-09-13 04:44] VITALS: BP 115/56; PULSE 74; RESP 16; TEMP 36.7; O2SAT 94
[2019-09-13 06:02] LABS: Absolute Lymphocyte Count 1.22 X10^3/uL (0.83-4.51); Basophil# 0.04 X10^3/uL; Basophil% 0.6 % (0-1); Eosinophils% 2.8 % (0-5); Hematocrit 26.8 % (37-47); Hemoglobin 8.2 g/dL (12.0-15.0); Lymphocyte # 1.22 X10^3/ul (4.0); Lymphocyte % 16.9 % (19-41); Mean Corp Hgb Conc 30.6 g/dL (32-36); Mean Corpuscular Hgb 27.2 pg (27.0-32.0); Mean Platelet Vol. 10.7 fl (6.2-12.0); Monocyte# 0.79 X10^3/uL; Monocyte% 10.9 % (0-10); NRBC Flagged by Analyzer 0 % (0-5); Neutrophil # 4.97 X10^3/uL (2.7-7.7); Neutrophil % 68.5 % (47-70); Platelet Count 283 K/mm3 (150-450); RBC Distribution Width CV 17.3 % (11.6-14.6); RBC Distribution Width SD 56.3 fl (35.1-43.9); Red Blood Count 3.01 M/mm3 (4.2-5.4); White Blood Count 7.2 K/mm3 (4.4-11.0)
[2019-09-13 06:16] LABS: Bedside Glucose 150 mg/dL (70-110)
[2019-09-13 09:00] LABS: Anion Gap 6 (5-15); BUN 57 mg/dL (7-18); BUN/Creat Ratio 35.2 RATIO (10-20); Calcium,Total 8.6 mg/dL (8.5-10.1); Chloride 109 mmol/L (98-107); Creatinine, Serum 1.62 mg/dL (0.55-1.02); EST Glomerular Filtration Rate 32 mL/min (>60); Est Glom Filt Rate - Afr Amer 39 mL/min (>60); Estimated Creatinine Clearance 20.45 ml/min; Glucose 131 mg/dL (74-106); Potassium 4.8 mmol/L (3.5-5.1); Sodium Level 137 mmol/L (136-145)
[2019-09-13] MEDS: Aspirin E.C. 81 MG Tablet PO (09:02)
[2019-09-13] MEDS: Iron Polysaccharide Complex 150 MG CAPSULE PO (09:02)
[2019-09-13] MEDS: Glimepiride 4 MG Tablet PO (09:02)
[2019-09-13 10:00] VITALS: PULSE 60; RESP 16; O2SAT 95
[2019-09-13 10:12] VITALS: BP 135/43; PULSE 60; RESP 16; TEMP 36.9; O2SAT 95
== END 2019-09-13 11:04 | disposition hospice, home (50) | DRG 310 ==
PROVIDERS: Admitting Provider Family Medicine Geriatric Medicine; PCP Family Medicine; Referring Provider Family Medicine Geriatric Medicine; Visit Provider Family Medicine Geriatric Medicine
DX: I47.2 Ventricular tachycardia (principal); E78.5 Hyperlipidemia, unspecified; F32.9 Major depressive disorder, single episode, unspecified; F41.9 Anxiety disorder, unspecified; I10 Essential (primary) hypertension; F01.50 Vascular dementia, unspecified severity, without behavioral disturbance, psychotic disturbance, mood disturbance, and anxiety; K21.9 Gastro-esophageal reflux disease without esophagitis; D50.9 Iron deficiency anemia, unspecified; Z86.73 Personal history of transient ischemic attack (TIA), and cerebral infarction without residual deficits; E11.9 Type 2 diabetes mellitus without complications; I25.2 Old myocardial infarction; Z23 Encounter for immunization
CPT/HCPCS: 36415; 80048; 82962; 85025; 92507; 92523; 97110; 97116; 97162; 97166; 97530; 97535; 97802; G0009; 90670